=== PATIENT | female | born 1945 | race Caucasian/White ===

== ENCOUNTER 2018-02-10 17:04 | Emergency (ER) | payer MEDICARE, OTHER, MEDICAID ==
[2018-02-10] MEDS ORDERED: Ketorolac 60 MG/2 ML SDV IM ONE (18:19)
--- NOTE | 2018-02-10 18:25 | EDM.PDOC ---
ED HPI GENERAL MEDICAL PROBLEM - General Chief Complaint: Upper Extremity Injury/Pain Stated Complaint: RIGHT ARM PAIN Time Seen by Provider: 02/10/18 18:19 Source of Information: Reports: Patient History Limitations: Reports: No Limitations - History of Present Illness INITIAL COMMENTS - FREE TEXT/NARRATIVE: Patient is a 72-year-old female who presents to the emergency department this evening with a complaint of recent onset right upper extremity pain, and chronic neck and back pain. Back pain and neck pain has been addressed multiple times by primary care physician. Patient states that right upper extremity pain is from the elbow to the wrist. Started 3 days ago. Patient admits to using right upper extremity on the walker handles for support while ambulating. Patient was started on tramadol last week for chronic pain and states it helped subside the pain a little bit. Patient denies shortness of breath, chest pain, trauma, or fever. Onset: Gradual Duration: Day(s): Location: Reports: Neck, Back, Upper Extremity, Right Quality: Reports: Ache Severity: Mild Improves with: Reports: Rest Worsens with: Reports: Movement Associated Symptoms: Reports: No Other Symptoms Treatments [employer]: Reports: Other Medication(s) Right Lower Arm Pain Score (Numeric/FACES): 6 - Related Data Allergies Allergy/AdvReac Type Severity Reaction Status Date / Time cortisone [Cortisone] Allergy Cannot Verified 02/10/18 17:24 Remember Zrwqvuj-Fjy-Pjm Reductase Allergy Cannot Verified 02/10/18 17:24 Inhibitor Remember Sulfa (Sulfonamide Allergy Cannot Verified 02/10/18 17:24 Antibiotics) Remember Home Meds: Home Meds Felodipine [Felodipine ER] 10 mg PO DAILY 05/10/14 [History] Lisinopril 20 mg PO DAILY 05/10/14 [History] Misoprostol 200 mcg PO BID 05/10/14 [History] Sertraline [Zoloft] 150 mg PO DAILY 05/10/14 [History] Alendronate Sodium [Fosamax] 70 mg PO WE 02/10/18 [History] Aspirin 81 mg PO DAILY 02/10/18 [History] Calcium Carbonate/Vitamin D3 [Os-Steven 500+D] 1 tab PO DAILY 02/10/18 [History] Cholecalciferol (Vitamin D3) [Vitamin D3] 5,000 unit PO DAILY 02/10/18 [History] DULoxetine [Cymbalta] 20 mg PO DAILY 02/10/18 [History] Diclofenac Sodium [Voltaren] 75 mg PO BID 02/10/18 [History] Docusate Sodium [Colace] 100 mg PO BID 02/10/18 [History] Multivitamin [Daily Multiple Vitamin] 1 tab PO DAILY 02/10/18 [History] Nystatin [Nystatin Crm] 1 applic TOP BID PRN 02/10/18 [History] traMADol [Ultram] 50 mg PO BID PRN 02/10/18 [History] Social & Family History - Living Situation & Occupation Living situation: Reports: Review of Systems - Review of Systems Review Of Systems: ROS reveals no pertinent complaints other than HPI. Constitutional: Reports: No Symptoms Eyes: Reports: No Symptoms Ears: Reports: No Symptoms Nose: Reports: No Symptoms Mouth/Throat: Reports: No Symptoms Respiratory: Reports: No Symptoms Cardiovascular: Reports: No Symptoms GI/Abdominal: Reports: No Symptoms Genitourinary: Reports: No Symptoms Musculoskeletal: Reports: Neck Pain, Arm Pain (Right arm), Back Pain Skin: Reports: No Symptoms Neurological: Reports: No Symptoms Psychiatric: Reports: No Symptoms ED EXAM, GENERAL - Physical Exam Exam: See Below Exam Limited By: No Limitations General Appearance: Alert, WD/WN, No Apparent Distress Throat/Mouth: Normal Inspection, Normal Oropharynx, No Airway Compromise Head: Atraumatic, Normocephalic Neck: Limited Range of Motion (Secondary to discomfort), Tender Lateral. No: Lymphadenopathy (L), Lymphadenopathy (R), Tender Midline Respiratory/Chest: No Respiratory Distress Back Exam: Decreased Range of Motion (Secondary to discomfort), Paraspinal Tenderness. No: CVA Tenderness (L), CVA Tenderness (R), Vertebral Tenderness Extremities: Normal Range of Motion, Arm Pain (Right forearm from elbow to wrist mildly tender to palpation. No elbow involvement, wrist in vomit, ecchymosis, edema, deformity, or erythema noted.) Neurological: Alert, Oriented, Normal Cognition Psychiatric: Normal Affect, Normal Mood Skin Exam: Warm, Dry, Intact, Normal Color, No Rash Lymphatic: No Adenopathy Course - Vital Signs Last Recorded V/S: Last Vital Signs Temp 98.6 F 02/10/18 17:07 Pulse 95 02/10/18 17:07 Resp 16 02/10/18 17:07 BP 162/78 H 02/10/18 17:07 Pulse Ox 97 02/10/18 17:07 - Orders/Labs/Meds Orders: Active Orders 24 hr Category Date Time Status Forearm 2V Rt [CR] Stat Exams 02/10/18 17:29 Ordered Ketorolac [Toradol] Med 02/10/18 18:19 Once 60 mg IM ONETIME ONE - Radiology Interpretation Free Text/Narrative:: X-ray right forearm is negative for any bony abnormality - Re-Assessments/Exams Free Text/Narrative Re-Assessment/Exam: 02/10/18 18:26 Patient afebrile, nontoxic appearing, vital signs stable. She has multiple chronic pain issues and right upper extremity has been causing more discomfort last few days. Patient was started on tramadol but told to take it only every 12 hours. Patient was given 60 mg IM Toradol in ER. Patient advised to take tramadol every 6-8 hours and to follow-up at [facility] in 1-2 days. Departure - Departure Time of Disposition: 18:28 Disposition: Home, Self-Care 01 Condition: Good Clinical Impression: Cervical radiculopathy due to degenerative joint disease of spine, Chronic back pain Chronic pain Qualifiers: Chronic pain type: chronic pain syndrome Qualified Code(s): G89.4 - Chronic pain syndrome Arthritic-like pain Qualifiers: Joint pain location: unspecified Qualified Code(s): M25.50 - Pain in unspecified joint - Discharge Information Instructions: Radicular Pain, Musculoskeletal Pain, Chronic Pain, Adult, Arthritis, [id number], Cervical Radiculopathy, [id number] Referrals: Susan Bush, TECHNICAL AID [Primary Care Provider] - Additional Instructions: Follow-up at [facility] in 1-2 days. Return to emergency department sooner if symptoms continue or worsen. Take tramadol every 6-8 hours as needed for pain. - My Orders Last 24 Hours: My Active Orders 02/10/18 17:29 Forearm 2V Rt [CR] Stat 02/10/18 18:19 Ketorolac [Toradol] 60 mg IM ONETIME ONE - Assessment/Plan Last 24 Hours: My Active Orders 02/10/18 17:29 Forearm 2V Rt [CR] Stat 02/10/18 18:19 Ketorolac [Toradol] 60 mg IM ONETIME ONE Assessment:: Chronic pain Plan: Follow-up at [facility]
== END 2018-02-10 18:45 | disposition home or self-care (01) ==
LOC: KA.ED 17:04
DX: M47.22 Other spondylosis with radiculopathy, cervical region (principal); M54.9 Dorsalgia, unspecified; G89.4 Chronic pain syndrome; M25.50 Pain in unspecified joint; Z79.82 Long term (current) use of aspirin; Z79.899 Other long term (current) drug therapy; Z88.2 Allergy status to sulfonamides; Z88.8 Allergy status to other drugs, medicaments and biological substances
CPT/HCPCS: 73090; 96372; 99283; J1885

== ENCOUNTER 2021-03-16 11:46 | Emergency (ER) | payer MEDICAID, MEDICARE, OTHER ==
--- NOTE | 2021-03-16 11:53 | EDM.PDOC ---
ED HPI GENERAL MEDICAL PROBLEM - General Chief Complaint: Skin Complaint Stated Complaint: WOUND INFECTION Time Seen by Provider: 03/16/21 11:48 Source of Information: Reports: Patient History Limitations: Reports: No Limitations - History of Present Illness INITIAL COMMENTS - FREE TEXT/NARRATIVE: 75 YO WF PRESENTS TO ER COMPLAINING OF REDNESS AND SWELLING TO THE SKIN ON HER POSTERIOR THIGH JUST BELOW HER BUTTOCKS. PT REPORTS THIS HAS BEEN GOING ON FOR 2 DAYS. PT STATES SHE WAS TREATED FOR A SIMILAR EPISODE 1 MONTH AGO WITH 5 DAYS OF ANTIBIOTICS. PT REPORTS HER SYMPTOMS RESOLVED AFTER THE ANTIBIOTICS BUT RETURNED 2 DAYS AGO. PT DENIES FEVER/CHILLS, NO NAUSEA/VOMITING AND MINIMAL PAIN ASSOCIATED WITH WOUND. Duration: Day(s): (2) Location: Reports: Lower Extremity, Left Quality: Reports: Ache Severity: Mild Improves with: Reports: Rest Worsens with: Reports: None Associated Symptoms: Reports: No Other Symptoms - Related Data Allergies Allergy/AdvReac Type Severity Reaction Status Date / Time cortisone [Cortisone] Allergy Cannot Verified 03/16/21 12:29 Remember Lzenecg-Qnk-Ehi Reductase Allergy Cannot Verified 03/16/21 12:29 Inhibitor Remember Sulfa (Sulfonamide Allergy Cannot Verified 03/16/21 12:29 Antibiotics) Remember Home Meds: Home Meds Felodipine [Felodipine ER] 10 mg PO DAILY 05/10/14 [History] Lisinopril 20 mg PO DAILY 05/10/14 [History] Sertraline [Zoloft] 150 mg PO DAILY 05/10/14 [History] miSOPROStoL [Misoprostol] 200 mcg PO BID 05/10/14 [History] Alendronate Sodium [Fosamax] 70 mg PO WE 02/10/18 [History] Aspirin 81 mg PO DAILY 02/10/18 [History] Calcium Carbonate/Vitamin D3 [Os-Steven 500+D] 1 tab PO DAILY 02/10/18 [History] Cholecalciferol (Vitamin D3) [Vitamin D3] 5,000 unit PO DAILY 02/10/18 [History] DULoxetine [Cymbalta] 20 mg PO DAILY 02/10/18 [History] Diclofenac Sodium [Voltaren] 75 mg PO BID 02/10/18 [History] Docusate Sodium [Colace] 100 mg PO BID 02/10/18 [History] Multivitamin [Daily Multiple Vitamin] 1 tab PO DAILY 02/10/18 [History] Nystatin [Nystatin Crm] 1 applic TOP BID PRN 02/10/18 [History] traMADol [Ultram] 50 mg PO BID PRN 02/10/18 [History] Social & Family History - Living Situation & Occupation Living situation: Reports: ED ROS GENERAL - Review of Systems Review Of Systems: See Below Constitutional: Reports: No Symptoms HEENT: Reports: No Symptoms Respiratory: Reports: No Symptoms Cardiovascular: Reports: No Symptoms Endocrine: Reports: No Symptoms GI/Abdominal: Reports: No Symptoms : Reports: No Symptoms Musculoskeletal: Reports: No Symptoms Skin: Reports: Wound (LEFT POSTERIOR THIGH) Neurological: Reports: No Symptoms Psychiatric: Reports: No Symptoms Hematologic/Lymphatic: Reports: No Symptoms Immunologic: Reports: No Symptoms ED EXAM, SKIN/RASH Exam: See Below Exam Limited By: No Limitations General Appearance: Alert, WD/WN, No Apparent Distress Head: Atraumatic, Normocephalic Neck: Normal Inspection, Supple, Non-Tender, Full Range of Motion Respiratory/Chest: No Respiratory Distress, Lungs Clear, Normal Breath Sounds, No Accessory Muscle Use, Chest Non-Tender Cardiovascular: Normal Peripheral Pulses, Regular Rate, Rhythm, No Edema, No Gallop, No JVD, No Murmur, No Rub GI/Abdominal: Normal Bowel Sounds, Soft, Non-Tender, No Organomegaly, No Distention, No Abnormal Bruit, No Mass Extremities: Normal Inspection, Normal Range of Motion, No Pedal Edema, Normal Capillary Refill Neurological: Alert, Oriented, CN II-XII Intact, Normal Cognition, Normal Gait, Normal Reflexes, No Motor/Sensory Deficits Psychiatric: Normal Affect, Normal Mood Location, Skin: Lower Extremity, Left (1cm circular lesion with serosanginous ) Associated features: Tenderness. No: Warmth, Swelling, Induration Departure - Departure Time of Disposition: 12:37 Disposition: Home, Self-Care 01 Condition: Good Clinical Impression: Cellulitis of left thigh - Discharge Information Instructions: Cellulitis, Adult Forms: ED Department Discharge Additional Instructions: 1. DISCHARGE HOME 2. APPLY BACTROBAN TO AFFECTED AREA 3X/DAY X 7DAYS 3. FOLLOW UP IN CLINIC NEEDED FOR RECHECK 4. RETURN TO ER FOR WORSENING SYMPTOMS - Assessment/Plan Assessment:: 1. EARLY CELLULITIS OF LEFT POSTERIOR THIGH Plan: 1. DISCHARGE HOME 2. APPLY BACTROBAN TO AFFECTED AREA 3X/DAY X 7DAYS 3. FOLLOW UP IN CLINIC NEEDED FOR RECHECK 4. RETURN TO ER FOR WORSENING SYMPTOMS
[2021-03-16] MEDS ORDERED: Mupirocin Oint 22 GM Tube TOP ONE (12:36)
== END 2021-03-16 13:00 | disposition home or self-care (01) ==
LOC: KA.ED 11:46
DX: L03.116 Cellulitis of left lower limb (principal); Z79.82 Long term (current) use of aspirin; Z88.2 Allergy status to sulfonamides; Z88.8 Allergy status to other drugs, medicaments and biological substances
CPT/HCPCS: 99283; 99284

== ENCOUNTER 2021-07-07 04:50 | Observation (INO) | payer MEDICAID, MEDICARE, OTHER ==
--- NOTE | 2021-07-07 04:58 | EDM.PDOC ---
ED HPI GENERAL MEDICAL PROBLEM - General Chief Complaint: General Stated Complaint: falls at home, knee & hip pain Time Seen by Provider: 07/07/21 04:50 Source of Information: Reports: Patient, EMS History Limitations: Reports: No Limitations - History of Present Illness INITIAL COMMENTS - FREE TEXT/NARRATIVE: Germania, 75-year-old female, presents by ambulance this morning after she sustained her second fall of the night at their apartment. First fall was on the evening of the 2nd and was assisted back up by the ambulance staff. Positioning issues as she got caught in the doorway of the bathroom as her wheelchair slid away from her. The second issue for ambulance dispatched to assist and pick her up was she got caught/twisted in her lift chair in a precarious position and was unable to get out of the chair without assistance. Her has had recent surgery and is unable to assist her as he is able to provide his own cares only. She states weakness and dizziness contributed to this, but she now has worsened pain of her left knee as well as right hip pain that she feels she bumped/fell. Ambulance was needed to assist her out of the chair and she was unable to assist of any significant benefit. Secondary of her limited mobility without assistance and her contribution of new pain, or worsened pain, ambulance discussed and she accepted the fact that she would need medical evaluation predominantly for the dizziness if it was contributing to her weakness. She then requested the ambulance to bring her to the hospital to get checked out. Onset: Today, Unknown/Unsure Duration: Hour(s): Location: Reports: Generalized Quality: Reports: Burning, Pressure, Same as Previous Episode, Sharp Severity: Moderate Improves with: Reports: None Worsens with: Reports: Movement Context: Reports: Trauma Associated Symptoms: Reports: Weakness Generalized Pain Score (Numeric/FACES): 5 - Related Data Allergies Allergy/AdvReac Type Severity Reaction Status Date / Time cortisone [Cortisone] Allergy Cannot Verified 07/07/21 05:02 Remember Chfksam-Xuj-Ehz Reductase Allergy Cannot Verified 07/07/21 05:02 Inhibitor Remember Sulfa (Sulfonamide Allergy Cannot Verified 07/07/21 05:02 Antibiotics) Remember Home Meds: Home Meds Felodipine [Felodipine ER] 10 mg PO DAILY 05/10/14 [History] Lisinopril 40 mg PO DAILY 05/10/14 [History] Sertraline [Zoloft] 200 mg PO DAILY 05/10/14 [History] Cholecalciferol (Vitamin D3) [Vitamin D3] 5,000 unit PO DAILY 02/10/18 [History] Acetaminophen [Tylenol Arthritis Pain] 650 mg PO TID PRN 03/16/21 [History] Ascorbic Acid 500 mg PO DAILY 03/16/21 [History] Denosumab [Prolia] 60 mg SUBCUT ASDIRECTED 03/16/21 [History] Furosemide 40 mg PO Q2D 03/16/21 [History] Omeprazole 20 mg PO Q2D 03/16/21 [History] Rosuvastatin [Crestor] 10 mg PO DAILY 03/16/21 [History] hydroCHLOROthiazide [Hydrochlorothiazide] 12.5 mg PO QAM 03/16/21 [History] traZODone 75 mg PO BEDTIME 03/16/21 [History] Clotrimazole [Clotrimazole 1%] 1 gm TOP BID PRN 07/07/21 [History] Magnesium Hydroxide [Milk of Magnesia] 30 ml PO DAILY PRN 07/07/21 [History] Menthol/Methyl Salicylate [Bengay Greaseless Cream] 1 gm TOP Q6H PRN 07/07/21 [History] Menthol/Zinc Oxide [Calmoseptine] 3.5 gm TOP TID PRN 07/07/21 [History] Metoprolol Succinate [Toprol XL] 25 mg PO DAILY 07/07/21 [History] Mirtazapine 7.5 mg PO BEDTIME 07/07/21 [History] Multivitamins/Min/Ca/FA/Iron [Thera-M] 1 each PO DAILY 07/07/21 [History] Potassium Chloride [Klor-Con 10] 20 meq PO DAILY 07/07/21 [History] Sennosides/Docusate Sodium [Senna Plus 8.6-50 mg Tablet] 1 each PO BEDTIME 07/07/21 [History] buPROPion HCL [Bupropion HCl Sr] 150 mg PO DAILY 07/07/21 [History] Past Medical History HEENT History: Reports: Impaired Vision Cardiovascular History: Reports: Heart Murmur, Hypertension Genitourinary History: Reports: None 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: Musculoskeletal History: Reports: Arthritis Neurological History: Reports: None Psychiatric History: Reports: Anxiety, Depression - Infectious Disease History Infectious Disease History: Reports: MRSA - Past Surgical History HEENT Surgical History: Reports: Oral Surgery Cardiovascular Surgical History: Reports: None Female Surgical History: Reports: Breast Biopsy, Hysterectomy Other Female Surgeries/Procedures: removed fatty tumor from right breast Neurological Surgical History: Reports: Lumbar Spine Other Neurological Surgeries/Procedures: rods and screws in lumbar region Musculoskeletal Surgical History: Reports: Knee Replacement Other Musculoskeletal Surgeries/Procedures:: right knee replacement. right shoulder replacement Social & Family History - Family History Family Medical History: No Pertinent Family History - Caffeine Use Caffeine Use: Reports: None - Living Situation & Occupation Living situation: Reports: ED ROS GENERAL - Review of Systems Review Of Systems: Comprehensive ROS is negative, except as noted in HPI. ED EXAM, GENERAL - Physical Exam Exam: See Below Free Text/Narrative:: Alert, cheerful, in mild painful distress to which she initially states is her chronic concerns. I specifically asked Germania what is new as to try come to a focus on why she is presenting via ambulance to the emergency department. At this time she states that her left knee is worse than usual as well as her right hip. She has been dizzy and questions if that is her contributing factor to falls. She has not been drinking as much water as usual. She states she is feeling anxious and may be somewhat depressed telling me that "I had a nervous breakdown, at least that is what I thought it was, 3 weeks ago." HEENT is negative to discharge nor deformity. Pupils are reactive and equal. No icterus no injection. Neck is soft supple I do not appreciate bruit no rigidity. Thorax is somewhat diminished, her effort contributing to that slightly. Cardiac Is very distant regular, I do not appreciate murmur. Abdomen is rotund soft bowel sounds are present I do not appreciate any tenderness no rebound tenderness. There is faint tenderness to the right hip but does not seem to be as severe as her exacerbation of chronic pain to her left knee. Left knee shows no significant deformity in comparison to right knee. There is mild crepitus to motion, of which I feel arthritic/degenerative in nature. +2 edema lower extremities she is able to move her feet and legs upon command with associated knee pain. She is very stubborn stating she will attempt to do things on her own of which she is unable to requiring assist for any type of motion. It is noted she is weightbearing once we can get her to a standing position and she is able to pivot into the wheelchair and attempt to go to the bathroom and she does not want catheter placement. She then refuses pelvic x-ray as she states due to chronic back pain she cannot lay flat. She does agree to the left knee films and the chest x-ray. No palpitations or dizziness is experienced during the time with moving and positioning her. #1 Interpretation EKG Date: 07/07/21 Time: 07:17 Rhythm: NSR Rate (Beats/Min): 90 Williams: LAD-Left Williams Deviation P-Wave: Present QRS: RBBB ST-T: Normal QT: Normal Comparison: No Change (Compare 22 Jun 2018) Course - Vital Signs Last Recorded V/S: Last Vital Signs Temp 96.7 F L 07/07/21 06:33 Pulse 94 07/07/21 08:02 Resp 20 07/07/21 06:33 BP 146/115 H 07/07/21 08:02 Pulse Ox 97 07/07/21 07:16 - Orders/Labs/Meds Orders: Active Orders 24 hr Category Date Time Status Fatima Catheter Insertion [Insert Urinary Catheter] [OM. Care 07/07/21 06:30 Ordered PC] Q24H Peripheral IV Care [RC] . DIRECTED Care 07/07/21 05:00 Active Urinary Catheter Assessment [RC] ASDIRECTED Care 07/07/21 06:26 Active CULTURE URINE [RM] Stat Lab 07/07/21 06:50 Received Sodium Chloride 0.9% [Saline Flush] Med 07/07/21 05:00 Active 10 ml FLUSH Q8HR PRN Peripheral IV Insertion Adult [OM.PC] Routine Oth 07/07/21 05:00 Ordered EKG 12 Lead [EK] Stat Ther 07/07/21 05:02 Ordered Medication Orders Sodium Chloride (Sodium Chloride 0.9% 10 Ml Syringe) 10 ml FLUSH Q8HR PRN PRN Reason: keep vein open Last Admin: 07/07/21 06:40 Dose: 10 ml Documented by: ADRIAN Labs: Laboratory Tests 07/07/21 07/07/21 07/07/21 Range/Units 06:30 06:30 06:50 WBC 9.89 (5.00-10.00) 10^3/uL RBC 4.37 (3.80-5.50) 10^6/uL Hgb 12.5 (12.0-16.0) g/dL Hct 38.8 (37.0-47.0) % MCV 88.8 (82.0-92.0) fL MCH 28.6 (27.0-31.0) pg MCHC 32.2 (32.0-36.0) g/dL RDW 14.7 H (11.5-14.5) % Plt Count 131 L (150-400) 10^3/uL MPV 12.3 H (7.4-10.4) fL Immature Gran % (Auto) 0.3 (0.0-5.0) % Neut % (Auto) 82.2 H (50.0-70.0) % Lymph % (Auto) 9.9 L (20.0-40.0) % [place] % (Auto) 7.0 (2.0-8.0) % Eos % (Auto) 0.4 L (1.0-3.0) % Baso % (Auto) 0.2 (0.0-1.0) % Neut # (Auto) 8.13 H (2.50-7.00) 10^3/uL Lymph # (Auto) 0.98 L (1.00-4.00) 10^3/uL [place] # (Auto) 0.69 (0.10-0.80) 10^3/uL Eos # (Auto) 0.04 L (0.10-0.30) 10^3/uL Baso # (Auto) 0.02 (0.00-0.10) 10^3/uL Immature Gran # (Auto) 0.03 (0.00-0.50) 10^3/uL Sodium 136 (136-145) mmol/L Potassium 4.0 (3.5-5.1) mmol/L Chloride 101 (98-107) mmol/L Carbon Dioxide 23.6 (21.0-32.0) mmol/L Anion Gap 15.4 H (5-15) mmol/L BUN 26 H (7-18) mg/dL Creatinine 0.84 (0.51-1.17) mg/dL Est Cr Clr Drug Dosing TNP Estimated GFR (MDRD) > 60 mL/min Glucose 115 (70-140) mg/dL Calcium 9.4 (8.7-10.3) mg/dL Total Bilirubin 0.4 (0.2-1.0) mg/dL AST 24 (15-37) U/L ALT 23 (14-63) U/L Alkaline Phosphatase 53 (46-116) U/L Troponin I High Sens 8.700 (0-51.000) pg/mL Total Protein 8.3 H (6.4-8.2) g/dL Albumin 3.67 (3.40-5.00) g/dL Specimen Type Urincc Urine Color Yellow (YELLOW) Urine Appearance Cloudy H (CLEAR) Urine pH 8.5 (5.0-9.0) Ur Specific [place] 1.015 (1.005-1.030) Urine Protein 30 H (NEGATIVE) mg/dL Urine Glucose (UA) Negative (NEGATIVE) mg/dL Urine Ketones Trace H (NEGATIVE) mg/dL Urine Occult Blood Moderate H (NEGATIVE) Urine Nitrite Positive H (NEGATIVE) Urine Bilirubin Negative (NEGATIVE) Urine Urobilinogen 0.2 (0.2-1.0) E.U./dL Ur Leukocyte Esterase Small H (NEGATIVE) Urine RBC 5-10 H (0-5) /HPF Urine WBC 5-10 H (0-5) /HPF Ur Epithelial Cells Few /LPF Other Crystals See note /HPF Urine Bacteria Many H (NONE TO FEW) /HPF Urinalysis Comment SARS CoV-2 RNA Rapid SHIRLEY (NEGATIVE) 07/07/21 Range/Units 07:30 WBC (5.00-10.00) 10^3/uL RBC (3.80-5.50) 10^6/uL Hgb (12.0-16.0) g/dL Hct (37.0-47.0) % MCV (82.0-92.0) fL MCH (27.0-31.0) pg MCHC (32.0-36.0) g/dL RDW (11.5-14.5) % Plt Count (150-400) 10^3/uL MPV (7.4-10.4) fL Immature Gran % (Auto) (0.0-5.0) % Neut % (Auto) (50.0-70.0) % Lymph % (Auto) (20.0-40.0) % [place] % (Auto) (2.0-8.0) % Eos % (Auto) (1.0-3.0) % Baso % (Auto) (0.0-1.0) % Neut # (Auto) (2.50-7.00) 10^3/uL Lymph # (Auto) (1.00-4.00) 10^3/uL [place] # (Auto) (0.10-0.80) 10^3/uL Eos # (Auto) (0.10-0.30) 10^3/uL Baso # (Auto) (0.00-0.10) 10^3/uL Immature Gran # (Auto) (0.00-0.50) 10^3/uL Sodium (136-145) mmol/L Potassium (3.5-5.1) mmol/L Chloride (98-107) mmol/L Carbon Dioxide (21.0-32.0) mmol/L Anion Gap (5-15) mmol/L BUN (7-18) mg/dL Creatinine (0.51-1.17) mg/dL Est Cr Clr Drug Dosing Estimated GFR (MDRD) mL/min Glucose (70-140) mg/dL Calcium (8.7-10.3) mg/dL Total Bilirubin (0.2-1.0) mg/dL AST (15-37) U/L ALT (14-63) U/L Alkaline Phosphatase (46-116) U/L Troponin I High Sens (0-51.000) pg/mL Total Protein (6.4-8.2) g/dL Albumin (3.40-5.00) g/dL Specimen Type Urine Color (YELLOW) Urine Appearance (CLEAR) Urine pH (5.0-9.0) Ur Specific [place] (1.005-1.030) Urine Protein (NEGATIVE) mg/dL Urine Glucose (UA) (NEGATIVE) mg/dL Urine Ketones (NEGATIVE) mg/dL Urine Occult Blood (NEGATIVE) Urine Nitrite (NEGATIVE) Urine Bilirubin (NEGATIVE) Urine Urobilinogen (0.2-1.0) E.U./dL Ur Leukocyte Esterase (NEGATIVE) Urine RBC (0-5) /HPF Urine WBC (0-5) /HPF Ur Epithelial Cells /LPF Other Crystals /HPF Urine Bacteria (NONE TO FEW) /HPF Urinalysis Comment SARS CoV-2 RNA Rapid SHIRLEY Negative (NEGATIVE) Meds: Medications Generic Name Dose Route Start Last Admin Trade Name Ying PRN Reason Stop Dose Admin Sodium Chloride 10 ml 07/07/21 05:00 07/07/21 06:40 Sodium Chloride 0.9% 10 Ml Syringe FLUSH 10 ml Q8HR PRN Administration keep vein open Discontinued Medications Generic Name Dose Route Start Last Admin Trade Name Ying PRN Reason Stop Dose Admin Acetaminophen 1,000 mg 07/07/21 07:09 07/07/21 07:22 Acetaminophen 500 Mg Tab PO 07/07/21 07:10 1,000 mg ONETIME ONE Administration Bupropion HCl 150 mg 07/07/21 05:07 07/07/21 05:32 Bupropion 150 Mg Tab.Er PO 07/07/21 05:08 150 mg ONETIME ONE Administration Ceftriaxone Sodium 1 gm 07/07/21 07:45 07/07/21 07:55 Ceftriaxone 1 Gm Vial IVPUSH 07/07/21 07:46 1 gm ONETIME ONE Administration Hydromorphone HCl 1 mg 07/07/21 06:54 Hydromorphone 1 Mg/Ml Syringe IVPUSH 07/07/21 06:55 ONETIME ONE - Re-Assessments/Exams Free Text/Narrative Re-Assessment/Exam: 07/07/21 06:31 Diligent discussion with Germania after several times requiring my assistance for positioning and moving in regards to her status. I expressed my concern that understanding that the wheelchair moved causing her first fall last evening is somewhat explainable but the fact she was unable to get up without assistance makes me concerned for her overall safety. The fact that her second event was falling and getting wedged in her chair to which she did not have the strength to get out on her own requiring ambulance summons again for assistance lift and the fact that she cannot position herself without assistance led to her request for evaluation due to dizziness and her pain being transferred here. I expressed my concern that with her able to care for himself only, and the fact that is requiring at least 1 of us in the emergency department and/or x-ray to assist her for any position changes it may be somewhat difficult to discharge her home unless we can find some metabolic findings in her work-up that would be leading to this dizziness weakness limiting her self-care ability. She previously had been a resident at the [facility] but felt she was good enough to be on her own which may be was true at the time of discharge but I feel at this point now she is candidate for long-term care placement and hopefully would be facilitated at both her and her could be either in assisted living and/or long-term care for the assistance she is needing at this time and potentially will continue as well as with his recent surgery would benefit in his overall status. Departure - Departure Time of Disposition: 08:43 Disposition: Refer to Observation Condition: Fair Clinical Impression: COVID-19 ruled out by laboratory testing, Weakness, Dizziness UTI (urinary tract infection) Qualifiers: Urinary tract infection type: acute cystitis Hematuria presence: with hematuria Qualified Code(s): N30.01 - Acute cystitis with hematuria Fall Qualifiers: Encounter type: initial encounter Qualified Code(s): W19.XXXA - Unspecified fall, initial encounter Left knee pain Qualifiers: Chronicity: chronic Qualified Code(s): M25.562 - Pain in left knee Degenerative joint disease of knee, left Qualifiers: Osteoarthritis type: unspecified Qualified Code(s): M17.12 - Unilateral primary osteoarthritis, left knee Hematuria Qualifiers: Hematuria type: asymptomatic microscopic Qualified Code(s): R31.21 - Asymptomatic microscopic hematuria - Discharge Information *PRESCRIPTION DRUG MONITORING PROGRAM REVIEWED*: Not Applicable *COPY OF PRESCRIPTION DRUG MONITORING REPORT IN PATIENT JANNETH: Not Applicable Referrals: Joi Bush NP [Primary Care Provider] - Eve Quintero MD [Physician] - Forms: ED Department Discharge Additional Instructions: Will be deferred to observation status, [facility] admitting Dr. Tomy Sutton. Sepsis Event Note (ED) - Focused Exam Vital Signs: Vital Signs Temp Pulse Resp BP Pulse Ox 07/07/21 08:02 94 146/115 H 07/07/21 07:46 93 178/88 H 07/07/21 07:31 93 94/73 07/07/21 07:16 94 164/93 H 97 07/07/21 07:01 93 182/131 H 07/07/21 06:46 94 193/86 H 07/07/21 06:33 96.7 F L 86 20 191/79 H 99 ED Communication - ED Communication Date/Time Date: 07/07/21 Time Called: 08:18 - Discussed Case With (1) Discussed Case With (1): Admitting Provider (Observation status with intent of placement to LTC) Person/s Notified (1): Eve Quintero - Problem List & Annotations (1) Left knee pain SNOMED Code(s): 2826168385 Code(s): M25.562 - PAIN IN LEFT KNEE Status: Chronic Priority: High Qualifiers: Chronicity: chronic Qualified Code(s): M25.562 - Pain in left knee; G89.29 - Other chronic pain (2) Degenerative joint disease of knee, left SNOMED Code(s): 233542126328206 Code(s): M17.12 - UNILATERAL PRIMARY OSTEOARTHRITIS, LEFT KNEE Status: Chronic Priority: Medium Qualifiers: Osteoarthritis type: unspecified Qualified Code(s): M17.12 - Unilateral primary osteoarthritis, left knee (3) Fall SNOMED Code(s): 4996690, 183537763 Code(s): W19.XXXA - UNSPECIFIED FALL, INITIAL ENCOUNTER Status: Acute Priority: High Qualifiers: Encounter type: initial encounter Qualified Code(s): W19.XXXA - Unspecified fall, initial encounter (4) Dizziness SNOMED Code(s): 632472871, 469565991 Code(s): R42 - DIZZINESS AND GIDDINESS Status: Acute Priority: High (5) Weakness SNOMED Code(s): 72624470 Code(s): R53.1 - WEAKNESS Status: Acute Priority: High (6) Chronic back pain SNOMED Code(s): 421145522 Code(s): M54.9 - DORSALGIA, UNSPECIFIED; G89.29 - OTHER CHRONIC PAIN Status: Chronic Priority: Medium Annotation/Comment:: back pain with sciatica (7) Chronic pain SNOMED Code(s): 22221267 Code(s): G89.29 - OTHER CHRONIC PAIN Status: Chronic Priority: Medium Qualifiers: Chronic pain type: chronic pain syndrome Qualified Code(s): G89.4 - Chronic pain syndrome (8) Arthritic-like pain SNOMED Code(s): 40378303 Code(s): M25.50 - PAIN IN UNSPECIFIED JOINT Status: Acute Priority: High Qualifiers: Joint pain location: knee Laterality: left Qualified Code(s): M25.562 - Pain in left knee (9) UTI (urinary tract infection) SNOMED Code(s): 31338510 Code(s): N39.0 - URINARY TRACT INFECTION, SITE NOT SPECIFIED Status: Acute Priority: High Qualifiers: Urinary tract infection type: acute cystitis Hematuria presence: with hematuria Qualified Code(s): N30.01 - Acute cystitis with hematuria (10) Hematuria SNOMED Code(s): 25839763 Code(s): R31.9 - HEMATURIA, UNSPECIFIED Status: Acute Priority: High Qualifiers: Hematuria type: asymptomatic microscopic Qualified Code(s): R31.21 - Asymptomatic microscopic hematuria (11) COVID-19 ruled out by laboratory testing SNOMED Code(s): 603249244608739247, 479520380524180462 Code(s): Z20.822 - CONTACT WITH AND (SUSPECTED) EXPOSURE TO COVID-19 Status: Acute - Problem List Review Problem List Initiated/Reviewed/Updated: Yes - My Orders Last 24 Hours: My Active Orders 07/07/21 05:00 Peripheral IV Care [RC] . DIRECTED Sodium Chloride 0.9% [Saline Flush] 10 ml FLUSH Q8HR PRN Peripheral IV Insertion Adult [OM.PC] Routine 07/07/21 05:02 EKG 12 Lead [EK] Stat 07/07/21 06:26 Urinary Catheter Assessment [RC] ASDIRECTED 07/07/21 06:30 Fatima Catheter Insertion [Insert Urinary Catheter] [OM.PC] Q24H 07/07/21 06:50 CULTURE URINE [RM] Stat - Assessment/Plan Last 24 Hours: My Active Orders 07/07/21 05:00 Peripheral IV Care [RC] . DIRECTED Sodium Chloride 0.9% [Saline Flush] 10 ml FLUSH Q8HR PRN Peripheral IV Insertion Adult [OM.PC] Routine 07/07/21 05:02 EKG 12 Lead [EK] Stat 07/07/21 06:26 Urinary Catheter Assessment [RC] ASDIRECTED 07/07/21 06:30 Fatima Catheter Insertion [Insert Urinary Catheter] [OM.PC] Q24H 07/07/21 06:50 CULTURE URINE [RM] Stat Plan: Will be deferred to observation status, [facility] admitting Dr. Tomy Sutton.
[2021-07-07] MEDS ORDERED: Sodium Chloride 0.9% 10 ML Syringe FLUSH PRN (05:00)
[2021-07-07] MEDS ORDERED: buPROPion 150 MG Tab.ER PO ONE (05:07)
[2021-07-07] MEDS ORDERED: HYDROmorphone 1 MG/ML Syringe IVPUSH ONE (06:54)
[2021-07-07 06:59] LABS: ANION GAP 15.4 mmol/L (5-15); CHLORIDE,CL 101 mmol/L (98-107); SODIUM,NA 136 mmol/L (136-145)
[2021-07-07] MEDS ORDERED: Acetaminophen 500 MG Tab PO ONE (07:09)
[2021-07-07] MEDS ORDERED: cefTRIAXone 1 GM Vial IVPUSH ONE (07:45)
[2021-07-07] MEDS ORDERED: Magnesium Hydroxide 400 MG/5 ML Susp 30 ML Cup PO PRN (13:27)
[2021-07-07] MEDS ORDERED: Ondansetron 4 MG/2 ML SDV IVPUSH PRN (13:42)
[2021-07-07] MEDS ORDERED: FELODIPINE 10 MG PO SCH (13:45)
--- NOTE | 2021-07-07 13:52 | PCM.HP.2 ---
H&P History of Present Illness - General Date of Service: 07/07/21 Admit Problem/Dx: Admission Diagnosis/Problem Admission Diagnosis/Problem Weakness Source of Information: Patient, Old Records, RN - History of Present Illness Initial Comments - Free Text/Narative: Patient reports feeling weak today and for the last month. Today she is reporting constipation and nausea. Patient reports "nervous breakdown" three weeks ago. She reports increased anxiety as well since then. She also report a "stomach bug" about one week ago and she had diarrhea at that time. She has been falling at home and unable to care for herself. She has also been working with home health OT that has discharged her from their care due to lack of progress. Patient does admit to feeling like she is unable to care for herself appropriately at home. Generalized Pain Score (Numeric/FACES): 5 - Related Data Allergies/Adverse Reactions: Allergies Allergy/AdvReac Type Severity Reaction Status Date / Time cortisone [Cortisone] Allergy Cannot Verified 07/07/21 05:02 Remember Uwwymez-Irt-Uir Reductase Allergy Cannot Verified 07/07/21 05:02 Inhibitor Remember Sulfa (Sulfonamide Allergy Cannot Verified 07/07/21 05:02 Antibiotics) Remember Home Medications: Home Meds Felodipine [Felodipine ER] 10 mg PO DAILY 05/10/14 [History] Lisinopril 40 mg PO DAILY 05/10/14 [History] Sertraline [Zoloft] 200 mg PO DAILY 05/10/14 [History] Cholecalciferol (Vitamin D3) [Vitamin D3] 5,000 unit PO DAILY 02/10/18 [History] Acetaminophen [Tylenol Arthritis Pain] 650 mg PO TID PRN 03/16/21 [History] Ascorbic Acid 500 mg PO DAILY 03/16/21 [History] Denosumab [Prolia] 60 mg SUBCUT ASDIRECTED 03/16/21 [History] Furosemide 40 mg PO Q2D 03/16/21 [History] Omeprazole 20 mg PO Q2D 03/16/21 [History] Rosuvastatin [Crestor] 10 mg PO DAILY 03/16/21 [History] hydroCHLOROthiazide [Hydrochlorothiazide] 12.5 mg PO QAM 03/16/21 [History] traZODone 75 mg PO BEDTIME 03/16/21 [History] Clotrimazole [Clotrimazole 1%] 1 gm TOP BID PRN 07/07/21 [History] Magnesium Hydroxide [Milk of Magnesia] 30 ml PO DAILY PRN 07/07/21 [History] Menthol/Methyl Salicylate [Bengay Greaseless Cream] 1 gm TOP Q6H PRN 07/07/21 [History] Menthol/Zinc Oxide [Calmoseptine] 3.5 gm TOP TID PRN 07/07/21 [History] Metoprolol Succinate [Toprol XL] 25 mg PO DAILY 07/07/21 [History] Mirtazapine 7.5 mg PO BEDTIME 07/07/21 [History] Multivitamins/Min/Ca/FA/Iron [Thera-M] 1 each PO DAILY 07/07/21 [History] Potassium Chloride [Klor-Con 10] 20 meq PO DAILY 07/07/21 [History] Sennosides/Docusate Sodium [Senna Plus 8.6-50 mg Tablet] 1 each PO BEDTIME 07/07/21 [History] buPROPion HCL [Bupropion HCl Sr] 150 mg PO DAILY 07/07/21 [History] Past Medical History HEENT History: Reports: Impaired Vision Other HEENT History: pt wears glasses. 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 right shoulder replacement. back surgery Social & Family History - Family History Family Medical History: No Pertinent Family History Cardiac: Reports: CAD Psychiatric: Reports: Depression - Tobacco Use Tobacco Use Status *Q: Never Tobacco User - Caffeine Use Caffeine Use: Reports: Soda - Recreational Drug Use Recreational Drug Use: No - Living Situation & Occupation Living situation: Reports: H&P Review of Systems - Review of Systems: Review Of Systems: Comprehensive ROS is negative, except as noted in HPI. Exam - Exam Exam: See Below - Vital Signs Vital Signs: Last Vital Signs Temp 97.7 F 07/07/21 09:29 Pulse 91 07/07/21 09:29 Resp 16 07/07/21 09:29 BP 162/71 H 07/07/21 09:29 Pulse Ox 100 07/07/21 09:29 Weight: 182 lb - Exam General: Alert, Oriented, Cooperative HEENT: Conjunctiva Clear Neck: Supple, Trachea Midline Lungs: Clear to Auscultation, Normal Respiratory Effort Cardiovascular: Regular Rate, Regular Rhythm GI/Abdominal Exam: Normal Bowel Sounds, Soft, Non-Tender Extremities: Normal Inspection, Non-Tender (No tenderness upon palpation of the left knee. Crepitus in the left knee noted. ), No Pedal Edema, Normal Capillary Refill Peripheral Pulses: 2+: Radial (R) Skin: Warm, Dry Neuro Extensive - Mental Status: Alert Psychiatric: Alert, Normal Affect, Normal Mood - Patient Data Lab Results Last 24 hrs: Laboratory Results - last 24 hr 07/07/21 07/07/21 07/07/21 Range/Units 06:30 06:30 06:50 WBC 9.89 (5.00-10.00) 10^3/uL RBC 4.37 (3.80-5.50) 10^6/uL Hgb 12.5 (12.0-16.0) g/dL Hct 38.8 (37.0-47.0) % MCV 88.8 (82.0-92.0) fL MCH 28.6 (27.0-31.0) pg MCHC 32.2 (32.0-36.0) g/dL RDW 14.7 H (11.5-14.5) % Plt Count 131 L (150-400) 10^3/uL MPV 12.3 H (7.4-10.4) fL Immature Gran % (Auto) 0.3 (0.0-5.0) % Neut % (Auto) 82.2 H (50.0-70.0) % Lymph % (Auto) 9.9 L (20.0-40.0) % [place] % (Auto) 7.0 (2.0-8.0) % Eos % (Auto) 0.4 L (1.0-3.0) % Baso % (Auto) 0.2 (0.0-1.0) % Neut # (Auto) 8.13 H (2.50-7.00) 10^3/uL Lymph # (Auto) 0.98 L (1.00-4.00) 10^3/uL [place] # (Auto) 0.69 (0.10-0.80) 10^3/uL Eos # (Auto) 0.04 L (0.10-0.30) 10^3/uL Baso # (Auto) 0.02 (0.00-0.10) 10^3/uL Immature Gran # (Auto) 0.03 (0.00-0.50) 10^3/uL Sodium 136 (136-145) mmol/L Potassium 4.0 (3.5-5.1) mmol/L Chloride 101 (98-107) mmol/L Carbon Dioxide 23.6 (21.0-32.0) mmol/L Anion Gap 15.4 H (5-15) mmol/L BUN 26 H (7-18) mg/dL Creatinine 0.84 (0.51-1.17) mg/dL Est Cr Clr Drug Dosing TNP Estimated GFR (MDRD) > 60 mL/min Glucose 115 (70-140) mg/dL Calcium 9.4 (8.7-10.3) mg/dL Total Bilirubin 0.4 (0.2-1.0) mg/dL AST 24 (15-37) U/L ALT 23 (14-63) U/L Alkaline Phosphatase 53 (46-116) U/L Troponin I High Sens 8.700 (0-51.000) pg/mL Total Protein 8.3 H (6.4-8.2) g/dL Albumin 3.67 (3.40-5.00) g/dL Specimen Type Urincc Urine Color Yellow (YELLOW) Urine Appearance Cloudy H (CLEAR) Urine pH 8.5 (5.0-9.0) Ur Specific [place] 1.015 (1.005-1.030) Urine Protein 30 H (NEGATIVE) mg/dL Urine Glucose (UA) Negative (NEGATIVE) mg/dL Urine Ketones Trace H (NEGATIVE) mg/dL Urine Occult Blood Moderate H (NEGATIVE) Urine Nitrite Positive H (NEGATIVE) Urine Bilirubin Negative (NEGATIVE) Urine Urobilinogen 0.2 (0.2-1.0) E.U./dL Ur Leukocyte Esterase Small H (NEGATIVE) Urine RBC 5-10 H (0-5) /HPF Urine WBC 5-10 H (0-5) /HPF Ur Epithelial Cells Few /LPF Other Crystals See note /HPF Urine Bacteria Many H (NONE TO FEW) /HPF Urinalysis Comment SARS CoV-2 RNA Rapid SHIRLEY (NEGATIVE) 07/07/21 Range/Units 07:30 WBC (5.00-10.00) 10^3/uL RBC (3.80-5.50) 10^6/uL Hgb (12.0-16.0) g/dL Hct (37.0-47.0) % MCV (82.0-92.0) fL MCH (27.0-31.0) pg MCHC (32.0-36.0) g/dL RDW (11.5-14.5) % Plt Count (150-400) 10^3/uL MPV (7.4-10.4) fL Immature Gran % (Auto) (0.0-5.0) % Neut % (Auto) (50.0-70.0) % Lymph % (Auto) (20.0-40.0) % Wood[place] % (Auto) (2.0-8.0) % Eos % (Auto) (1.0-3.0) % Baso % (Auto) (0.0-1.0) % Neut # (Auto) (2.50-7.00) 10^3/uL Lymph # (Auto) (1.00-4.00) 10^3/uL [place] # (Auto) (0.10-0.80) 10^3/uL Eos # (Auto) (0.10-0.30) 10^3/uL Baso # (Auto) (0.00-0.10) 10^3/uL Immature Gran # (Auto) (0.00-0.50) 10^3/uL Sodium (136-145) mmol/L Potassium (3.5-5.1) mmol/L Chloride (98-107) mmol/L Carbon Dioxide (21.0-32.0) mmol/L Anion Gap (5-15) mmol/L BUN (7-18) mg/dL Creatinine (0.51-1.17) mg/dL Est Cr Clr Drug Dosing Estimated GFR (MDRD) mL/min Glucose (70-140) mg/dL Calcium (8.7-10.3) mg/dL Total Bilirubin (0.2-1.0) mg/dL AST (15-37) U/L ALT (14-63) U/L Alkaline Phosphatase (46-116) U/L Troponin I High Sens (0-51.000) pg/mL Total Protein (6.4-8.2) g/dL Albumin (3.40-5.00) g/dL Specimen Type Urine Color (YELLOW) Urine Appearance (CLEAR) Urine pH (5.0-9.0) Ur Specific [place]ock (1.005-1.030) Urine Protein (NEGATIVE) mg/dL Urine Glucose (UA) (NEGATIVE) mg/dL Urine Ketones (NEGATIVE) mg/dL Urine Occult Blood (NEGATIVE) Urine Nitrite (NEGATIVE) Urine Bilirubin (NEGATIVE) Urine Urobilinogen (0.2-1.0) E.U./dL Ur Leukocyte Esterase (NEGATIVE) Urine RBC (0-5) /HPF Urine WBC (0-5) /HPF Ur Epithelial Cells /LPF Other Crystals /HPF Urine Bacteria (NONE TO FEW) /HPF Urinalysis Comment SARS CoV-2 RNA Rapid SHIRLEY Negative (NEGATIVE) Result Diagrams: 07/07/21 06:30 07/07/21 06:30 Sepsis Event Note - Evaluation Sepsis Screening Result: No Definite Risk - Focused Exam Vital Signs: Vital Signs Temp Pulse Resp BP BP Pulse Ox 07/07/21 09:29 97.7 F 91 16 162/71 H 100 07/07/21 08:31 91 127/109 H 98 07/07/21 08:26 165/60 H 07/07/21 08:15 96 18 214/190 H 98 07/07/21 08:02 94 146/115 H 07/07/21 07:46 93 178/88 H 07/07/21 07:31 93 94/73 07/07/21 07:16 94 164/93 H 97 07/07/21 07:01 93 182/131 H 07/07/21 06:46 94 193/86 H 07/07/21 06:33 96.7 F L 86 20 191/79 H 99 Problem List Initiated/Reviewed/Updated: Yes Orders Last 24hrs: Active Orders 24 hr Category Date Time Status Patient Status [ADT] Routine ADT 07/07/21 08:29 Active Intake and Output [RC] QSHIFT Care 07/07/21 13:10 Ordered Oxygen Therapy [RC] PRN Care 07/07/21 13:09 Ordered Peripheral IV Care [RC] . DIRECTED Care 07/07/21 05:00 Active Pulse Oximetry [RC] PRN Care 07/07/21 13:10 Ordered Up to Chair [RC] ASDIRECTED Care 07/07/21 13:09 Ordered VTE/DVT Education [RC] PER UNIT ROUTINE Care 07/07/21 13:09 Ordered Vital Signs [RC] Q4H Care 07/07/21 13:09 Ordered Consult to Case Management/[place] [CONS] Cons 07/07/21 13:23 Ordered Routine Heart Healthy Diet [DIET] Diet 07/07/21 Lunch Active Regular Diet [DIET] Diet 07/07/21 Dinner Ordered CULTURE URINE [RM] Stat Lab 07/07/21 06:50 Received Acetaminophen [Tylenol Arthritis Pain] Med 07/07/21 13:27 Ordered 650 mg PO TID PRN DULoxetine [Cymbalta] Med 07/07/21 13:45 Ordered 30 mg PO DAILY Docusate Sodium/Sennosides [Senna Plus] Med 07/07/21 21:00 Ordered 1 each PO BEDTIME Felodipine [Felodipine ER] Med 07/07/21 13:45 Ordered 10 mg PO DAILY Magnesium Hydroxide [Milk of Magnesia] Med 07/07/21 13:27 Ordered 30 ml PO DAILY PRN Metoprolol Succinate [Toprol XL] Med 07/07/21 13:45 Ordered 25 mg PO DAILY Omeprazole [Omeprazole] Med 07/07/21 13:30 Ordered 20 mg PO Q2D Ondansetron [Zofran] Med 07/07/21 13:42 Ordered 4 mg IVPUSH Q6H PRN Potassium Chloride [Klor-Con 10] Med 07/08/21 09:00 Ordered 20 meq PO DAILY Rosuvastatin [Crestor] Med 07/07/21 13:45 Ordered 10 mg PO DAILY Sertraline [Zoloft] Med 07/08/21 09:00 Ordered 200 mg PO DAILY Sodium Chloride 0.9% [Saline Flush] Med 07/07/21 05:00 Active 10 ml FLUSH Q8HR PRN hydroCHLOROthiazide Med 07/07/21 13:45 Ordered 12.5 mg PO QAM lisinopriL [Prinivil] Med 07/07/21 13:45 Ordered 40 mg PO DAILY traZODone Med 07/07/21 21:00 Ordered 75 mg PO BEDTIME Peripheral IV Insertion Adult [OM.PC] Routine Oth 07/07/21 05:00 Ordered Code Status [Resuscitation Status] Stat Resus Stat 07/07/21 08:36 Ordered EKG 12 Lead [EK] Stat Ther 07/07/21 05:02 Ordered Medication Orders Acetaminophen (Acetaminophen 650 Mg Tab.Er) 650 mg PO TID PRN PRN Reason: Pain Duloxetine HCl (Duloxetine 30 Mg Cap) 30 mg PO DAILY [facility] Hydrochlorothiazide (Hydrochlorothiazide 12.5 Mg Cap) 12.5 mg PO QAM [facility] Lisinopril (Lisinopril 20 Mg Tab) 40 mg PO DAILY [facility] Magnesium Hydroxide (Magnesium Hydroxide 400 Mg/5 Ml Susp 30 Ml Cup) 30 ml PO DAILY PRN PRN Reason: Constipation Metoprolol Succinate (Metoprolol Succinate 25 Mg Tab.Er) 25 mg PO DAILY [facility] Non-Formulary Medication (Felodipine [Felodipine Er]) 10 mg PO DAILY [facility] Non-Formulary Medication (Omeprazole [Omeprazole]) 20 mg PO Q2D [facility] Non-Formulary Medication (Sertraline [Zoloft]) 200 mg PO DAILY [facility] Ondansetron HCl (Ondansetron 4 Mg/2 Ml Sdv) 4 mg IVPUSH Q6H PRN PRN Reason: Nausea/Vomiting Potassium Chloride (Potassium Chloride 10 Meq Tab.Er) 20 meq PO DAILY [facility] Rosuvastatin Calcium (Rosuvastatin 10 Mg Tab) 10 mg PO DAILY [facility] Senna/Docusate Sodium (Docusate Sodium/Sennosides 50-8.6 Mg Tab) tab PO BEDTIME [facility] Sodium Chloride (Sodium Chloride 0.9% 10 Ml Syringe) 10 ml FLUSH Q8HR PRN PRN Reason: keep vein open Last Admin: 07/07/21 06:40 Dose: 10 ml Documented by: ADRIAN Trazodone HCl (Trazodone 50 Mg Tab) 75 mg PO BEDTIME [facility] Assessment/Plan Comment:: HPI summary: Patient is a 75 year old female with history of HTN, anxiety, depression, severe osteoarthritis. She presented to the ER due to falling at home twice last night and requiring ambulance assistance. Patient reports feeling weak today and for the last month. She has also been feeling dizzy. Patient reports "nervous breakdown" three weeks ago. She reports increased anxiety as well since then. She also report a "stomach bug" about one week ago and she had diarrhea at that time. She stopped taking one of her blood pressure pills because of the diarrhea. She has been falling at home. She has also been working with home health OT that has discharged her from their care due to lack of progress. Patient does admit to feeling like she is unable to care for herself appropriately at home. Patient had preivous been at the [facility] from April 2019-April 2020. Today she is reporting constipation and nausea. ED course: Vital signs normal. EKG NSR with RBB. X-ray of left knee with extreme degenerative cahnges and depressed lateral tibial plateau fracture (age undetermined). CXR with no acute findings. Platlets of 131. Rest of CBC unremarkable. CMP unremarkable. UA with 5-10 RBC and WBC many bacteria and small leukocyte esterase. Patient given 1 g of ceftriaxone for possible UTI. Hospitalization problems and plan: #Frequent falls #Deconditioning #Self care deficit #Severe osteoarthritis #GI illness, likely viral Patient admits to being unable to care for self at home. Failed outpatient home therapy. -Consult social work for assistance in placement to SNF #Bacturia No symptoms of dysuria, frequency or incontinence above baseline. Likely asymptomatic. -UC pending. -Covered with ceftriaxone for 24 hours. Will decide on continuing antibiotics tomorrow. #Thrombocytopenia -recheck CBC in AM Chronic, stable conditions: #Hypertension: Has not been taking home regimen. BP has been elevated. Continue on lisinopril 40 mg daily, HCTZ 12.5 mg daily, metoprolol 25 mg daily, felodipi ne 10 mg daily #Hyperlipidemia: Continue on rosuvastatin 10 mg daily #Pedal edema: Continue lasix 40 mg every other day #GERD: Cotinue with PPI. #Hypokalemia: Continue with potassium chloride 20 mEq daily #Anxiety and depression: Continue with sertraline 200 mg daily, trazodone 75 mg at HS. Restart duloxetine at 30 mg daily. Was previously on 60 mg daily before it was discontinued. Remeron has recently been discontinued. Hospitalization details: # FEN: No IV fluids. Electrolytes normal. Regular diet. # PPX: Will start if patient stays beyond 24 hours. # Code status: DRR/DNI # Emergency contact: Clemente () [phone] (cell phone) # Disposition: Admit to observation status for above probelme. Consulting social work. Plan for for placement to SNF. Patient reports feeling weak today and for the last month. Today she is reporting constipation and nausea. Patient reports "nervous breakdown" three weeks ago. She reports increased anxiety as well since then. She also report a "stomach bug" about one week ago and she had diarrhea at that time. She has been falling at home and unable to care for herself. She has also been working with home health OT that has discharged her from their care due to lack of progress. Patient does admit to feeling like she is unable to care for herself appropriately at home.
[2021-07-07] MEDS: DULoxetine 30 MG Cap PO SCH (14:18)
[2021-07-07] MEDS: Hydrochlorothiazide 12.5 MG Cap PO SCH (14:18)
[2021-07-07] MEDS: Lisinopril 20 MG Tab PO SCH (14:20)
[2021-07-07] MEDS: Metoprolol Succinate 25 MG Tab.ER PO SCH (15:34)
[2021-07-07] MEDS: hydrOXYzine HCl 25 MG Tab PO PRN ×2 (15:35→21:35)
[2021-07-07] MEDS: Sertraline 50 MG Tab PO SCH (15:35)
[2021-07-07] MEDS: Acetaminophen 650 MG Tab.ER PO PRN ×2 (15:35→23:37)
[2021-07-07] MEDS ORDERED: Pantoprazole 40 MG Tab.CR PO SCH (16:00)
[2021-07-07] MEDS ORDERED: Diclofenac Sodium 1% Gel 100 GM Tube TOP PRN (16:40)
[2021-07-07] MEDS ORDERED: traZODone 50 MG Tab PO SCH (21:00)
[2021-07-07] MEDS ORDERED: Rosuvastatin 10 MG Tab PO SCH (21:00)
[2021-07-08] MEDS ORDERED: LORazepam 0.5 MG Tab PO ONE (00:10)
[2021-07-08] MEDS: Acetaminophen 650 MG Tab.ER PO PRN (08:38)
[2021-07-08] MEDS ORDERED: Potassium Chloride 10 MEQ Tab.ER PO SCH (09:00)
[2021-07-08 09:05] LABS: ANION GAP 13.6 mmol/L (5-15)
[2021-07-08] MEDS: Hydrochlorothiazide 12.5 MG Cap PO SCH (09:19)
[2021-07-08] MEDS: Metoprolol Succinate 25 MG Tab.ER PO SCH (09:19)
[2021-07-08] MEDS: DULoxetine 30 MG Cap PO SCH (09:19)
[2021-07-08] MEDS: hydrOXYzine HCl 25 MG Tab PO PRN (09:19)
[2021-07-08] MEDS: Sertraline 50 MG Tab PO SCH (09:19)
[2021-07-08] MEDS: Lisinopril 20 MG Tab PO SCH (09:20)
--- NOTE | 2021-07-08 13:47 | PCM.DCSUM1 ---
Discharge Summary - Hospital Course Free Text/Narrative:: Date of admission: 07/07/21 Date of discharge: 07/08/21 Admission diagnoses: self care deficit, frequent falls, bacturia, deconditioning, severe osteoarthritis, thrombocytopenia Discharge diagnoses: self care deficit, frequent falls, bacturia, deconditioning, severe osteoarthritis Consultations: Social work for placement into SNF Procedures: None Hospital course: HPI summary: Patient is a 75 year old female with history of HTN, anxiety, depression, severe osteoarthritis. She presented to the ER due to falling at home twice last night and requiring ambulance assistance. Patient reports feeling weak today and for the last month. She has also been feeling dizzy. Patient reports "nervous breakdown" three weeks ago. She reports increased anxiety as well since then. She also report a "stomach bug" about one week ago and she had diarrhea at that time. She stopped taking one of her blood pressure pills because of the diarrhea. She has been falling at home. She has also been working with home health OT that has discharged her from their care due to lack of progress. Panfilo mann does admit to feeling like she is unable to care for herself appropriately at home. Patient had preivous been at the [facility] from April 2019- April 2020. Today she is reporting constipation and nausea. ED course: Vital signs normal. EKG NSR with RBB. X-ray of left knee with extreme degenerative cahnges and depressed lateral tibial plateau fracture (age undetermined). CXR with no acute findings. Platlets of 131. Rest of CBC unremarkable. CMP unremarkable. UA with 5-10 RBC and WBC many bacteria and small leukocyte esterase. Patient given 1 g of ceftriaxone for possible UTI. Hospital course: 07/08/21: Patient's nausea improved after having a bowel movement yesterday. Plt returned to normal limits. Antibiotic stopped after a one time dose of ceftria xone in the ER due to patient having asymptomatic bacturia that does not require treatment. Hospitalization problems and plan: #Frequent falls #Deconditioning #Self care deficit #Severe osteoarthritis #GI illness, likely viral Patient admits to being unable to care for self at home. Failed outpatient home therapy. -Consult social work for assistance in placement to SNF #Bacturia No symptoms of dysuria, frequency or incontinence above baseline. Likely asymptomatic. -UC pending. -Covered with ceftriaxone for 24 hours. -No further antibiotics needed. #Thrombocytopenia -Resolved. Chronic, stable conditions: #Hypertension: Has not been taking home regimen. BP has been elevated. Continue on lisinopril 40 mg daily, HCTZ 12.5 mg daily, metoprolol 25 mg daily, felodipine 10 mg daily #Hyperlipidemia: Continue on rosuvastatin 10 mg daily #Pedal edema: Continue lasix 40 mg every other day #GERD: Cotinue with PPI. #Hypokalemia: Continue with potassium chloride 20 mEq daily #Anxiety and depression: Continue with sertraline 200 mg daily, trazodone 75 mg at HS. Restart duloxetine at 30 mg daily. Was previously on 60 mg daily before it was discontinued. Remeron has recently been discontinued. Discharge and follow-up recommendations: - Discharge to SNF - New medications at discharge: cymbalta 30 mg daily, diclofenac PRN, hydroxyzine PRN. - Follow-up with next [facility] rounds - Discharge Data Discharge Date: 07/08/21 Discharge Disposition: DC/Tfer to [facility] Condition: Good - Referral to Home Health Primary Care Physician: Joi Bush NP - Patient Summary/Data Consults: Consultations 07/07/21 13:23 Consult to Case Management/Business Intelligence Engineer [CONS] Routine - Patient Instructions Diet: Regular Diet as Tolerated Activity: As Tolerated - Discharge Plan *PRESCRIPTION DRUG MONITORING PROGRAM REVIEWED*: Not Applicable *COPY OF PRESCRIPTION DRUG MONITORING REPORT IN PATIENT JANNETH: Not Applicable Prescriptions/Med Rec: DULoxetine [Cymbalta] 30 mg PO DAILY #30 cap hydrOXYzine HCL [hydrOXYzine] 25 mg PO Q6H PRN #30 tablet PRN Reason: Anxiety Diclofenac Sodium [Voltaren 1% Gel] 1 gm TOP QID PRN #1 tube PRN Reason: Pain Home Medications: Home Meds Felodipine [Felodipine ER] 10 mg PO DAILY 05/10/14 [History] Lisinopril 40 mg PO DAILY 05/10/14 [History] Sertraline [Zoloft] 200 mg PO DAILY 05/10/14 [History] Cholecalciferol (Vitamin D3) [Vitamin D3] 5,000 unit PO DAILY 02/10/18 [History] Acetaminophen [Tylenol Arthritis Pain] 650 mg PO TID PRN 03/16/21 [History] Ascorbic Acid 500 mg PO DAILY 03/16/21 [History] Denosumab [Prolia] 60 mg SUBCUT ASDIRECTED 03/16/21 [History] Furosemide 40 mg PO Q2D 03/16/21 [History] Omeprazole 20 mg PO Q2D 03/16/21 [History] Rosuvastatin [Crestor] 10 mg PO DAILY 03/16/21 [History] hydroCHLOROthiazide [Hydrochlorothiazide] 12.5 mg PO QAM 03/16/21 [History] traZODone 75 mg PO BEDTIME 03/16/21 [History] Clotrimazole [Clotrimazole 1%] 1 gm TOP BID PRN 07/07/21 [History] Magnesium Hydroxide [Milk of Magnesia] 30 ml PO DAILY PRN 07/07/21 [History] Menthol/Methyl Salicylate [Bengay Greaseless Cream] 1 gm TOP Q6H PRN 07/07/21 [History] Menthol/Zinc Oxide [Calmoseptine] 3.5 gm TOP TID PRN 07/07/21 [History] Metoprolol Succinate [Toprol XL] 25 mg PO DAILY 07/07/21 [History] Multivitamins/Min/Ca/FA/Iron [Thera-M] 1 each PO DAILY 07/07/21 [History] Potassium Chloride [Klor-Con 10] 20 meq PO DAILY 07/07/21 [History] Sennosides/Docusate Sodium [Senna Plus 8.6-50 mg Tablet] 1 each PO BEDTIME 07/07/21 [History] DULoxetine [Cymbalta] 30 mg PO DAILY #30 cap 07/08/21 [Rx] Diclofenac Sodium [Voltaren 1% Gel] 1 gm TOP QID PRN #1 tube 07/08/21 [Rx] hydrOXYzine HCL [hydrOXYzine] 25 mg PO Q6H PRN #30 tablet 07/08/21 [Rx] Forms: ED Department Discharge Referrals: [facility] [Outside] - Discharge Summary/Plan Comment DC Time >30 min.: Yes Total # of Minutes for Discharge Time: 40 minutes Discharge Summary/Plan Comment: Date of admission: Date of discharge: Admission diagnoses: Discharge diagnoses: Consultations: Procedures: Hospital course: Discharge and follow-up recommendations: - Discharge to - New medications at discharge: - Follow-up - General Info Date of Service: 07/08/21 Subjective Update: Patient feeling better this morning. She had a BM yesterday and that improved her nausea. She reports back pain. She does have chronic back pain. Denies pain in her left knee. Patient still feels unable to care for self at home. - Patient Data Vitals - Most Recent: Last Vital Signs Temp 98 F 07/08/21 11:00 Pulse 60 07/08/21 11:00 Resp 60 H 07/08/21 11:00 BP 146/65 H 07/08/21 11:00 Pulse Ox 97 07/08/21 11:00 Weight - Most Recent: 182 lb I&O - Last 24 hours: Intake & Output 07/07/21 07/08/21 07/08/21 22:59 06:59 14:59 Intake Total 440 150 Balance 440 150 Lab Results - Last 24 hrs: Laboratory Results - last 24 hr 07/08/21 07/08/21 Range/Units 08:31 08:31 WBC 9.05 (5.00-10.00) 10^3/uL RBC 4.63 (3.80-5.50) 10^6/uL Hgb 13.0 (12.0-16.0) g/dL Hct 40.9 (37.0-47.0) % MCV 88.3 (82.0-92.0) fL MCH 28.1 (27.0-31.0) pg MCHC 31.8 L (32.0-36.0) g/dL RDW 14.9 H (11.5-14.5) % Plt Count 172 (150-400) 10^3/uL MPV 11.2 H (7.4-10.4) fL Immature Gran % (Auto) 0.4 (0.0-5.0) % Neut % (Auto) 71.2 H (50.0-70.0) % Lymph % (Auto) 18.5 L (20.0-40.0) % [place] % (Auto) 8.2 H (2.0-8.0) % Eos % (Auto) 1.5 (1.0-3.0) % Baso % (Auto) 0.2 (0.0-1.0) % Neut # (Auto) 6.44 (2.50-7.00) 10^3/uL Lymph # (Auto) 1.67 (1.00-4.00) 10^3/uL [place] # (Auto) 0.74 (0.10-0.80) 10^3/uL Eos # (Auto) 0.14 (0.10-0.30) 10^3/uL Baso # (Auto) 0.02 (0.00-0.10) 10^3/uL Immature Gran # (Auto) 0.04 (0.00-0.50) 10^3/uL Sodium 137 (136-145) mmol/L Potassium 3.5 (3.5-5.1) mmol/L Chloride 102 (98-107) mmol/L Carbon Dioxide 24.9 (21.0-32.0) mmol/L Anion Gap 13.6 (5-15) mmol/L BUN 23 H (7-18) mg/dL Creatinine 1.00 (0.51-1.17) mg/dL Est Cr Clr Drug Dosing 34.91 mL/min Estimated GFR (MDRD) 54 mL/min Glucose 105 (70-140) mg/dL Calcium 9.3 (8.7-10.3) mg/dL Total Bilirubin 0.3 (0.2-1.0) mg/dL AST 28 (15-37) U/L ALT 21 (14-63) U/L Alkaline Phosphatase 58 (46-116) U/L Total Protein 8.3 H (6.4-8.2) g/dL Albumin 3.58 (3.40-5.00) g/dL NOA Results - Last 24 hrs: Microbiology 07/07/21 06:50 Urine Culture - Final Urine, Catheterized Med Orders - Current: Current Medications Acetaminophen (Acetaminophen 650 Mg Tab.Er) 650 mg PO TID PRN PRN Reason: Pain Last Admin: 07/08/21 08:38 Dose: 650 mg Documented by: Diclofenac Sodium (Diclofenac Sodium 1% Gel 100 Gm Tube) 1 gm TOP QID PRN PRN Reason: Pain Last Admin: 07/07/21 17:03 Dose: 1 applic Documented by: Duloxetine HCl (Duloxetine 30 Mg Cap) 30 mg PO DAILY [facility] Last Admin: 07/08/21 09:19 Dose: 30 mg Documented by: Hydrochlorothiazide (Hydrochlorothiazide 12.5 Mg Cap) 12.5 mg PO QAM [facility] Last Admin: 07/08/21 09:19 Dose: 12.5 mg Documented by: Hydroxyzine HCl (Hydroxyzine Hcl 25 Mg Tab) 25 mg PO Q6H PRN PRN Reason: Anxiety Last Admin: 07/08/21 09:19 Dose: 25 mg Documented by: Lisinopril (Lisinopril 20 Mg Tab) 40 mg PO DAILY [facility] Last Admin: 07/08/21 09:20 Dose: 40 mg Documented by: Magnesium Hydroxide (Magnesium Hydroxide 400 Mg/5 Ml Susp 30 Ml Cup) 30 ml PO DAILY PRN PRN Reason: Constipation Metoprolol Succinate (Metoprolol Succinate 25 Mg Tab.Er) 25 mg PO DAILY [facility] Last Admin: 07/08/21 09:19 Dose: 25 mg Documented by: Non-Formulary Medication (Felodipine [Felodipine Er]) 10 mg PO DAILY [facility] Ondansetron HCl (Ondansetron 4 Mg/2 Ml Sdv) 4 mg IVPUSH Q6H PRN PRN Reason: Nausea/Vomiting Last Admin: 07/07/21 14:11 Dose: 4 mg Documented by: Pantoprazole Sodium (Pantoprazole 40 Mg Tab.Cr) 40 mg PO Q2D [facility] Last Admin: 07/07/21 16:20 Dose: 40 mg Documented by: Potassium Chloride (Potassium Chloride 10 Meq Tab.Er) 20 meq PO DAILY [facility] Last Admin: 07/08/21 09:19 Dose: 20 meq Documented by: Rosuvastatin Calcium (Rosuvastatin 10 Mg Tab) 10 mg PO BEDTIME [facility] Last Admin: 07/07/21 20:38 Dose: 10 mg Documented by: Senna/Docusate Sodium (Docusate Sodium/Sennosides 50-8.6 Mg Tab) 1 tab PO BEDTIME [facility] Last Admin: 07/07/21 20:38 Dose: 1 tab Documented by: Sertraline HCl (Sertraline 50 Mg Tab) 200 mg PO DAILY [facility] Last Admin: 07/08/21 09:19 Dose: 200 mg Documented by: Sodium Chloride (Sodium Chloride 0.9% 10 Ml Syringe) 10 ml FLUSH Q8HR PRN PRN Reason: keep vein open Last Admin: 07/07/21 06:40 Dose: 10 ml Documented by: Trazodone HCl (Trazodone 50 Mg Tab) 75 mg PO BEDTIME [facility] Last Admin: 07/07/21 20:37 Dose: 75 mg Documented by: Discontinued Medications Acetaminophen (Acetaminophen 500 Mg Tab) 1,000 mg PO ONETIME ONE Stop: 07/07/21 07:10 Last Admin: 07/07/21 07:22 Dose: 1,000 mg Documented by: Bupropion HCl (Bupropion 150 Mg Tab.Er) 150 mg PO ONETIME ONE Stop: 07/07/21 05:08 Last Admin: 07/07/21 05:32 Dose: 150 mg Documented by: Ceftriaxone Sodium (Ceftriaxone 1 Gm Vial) 1 gm IVPUSH ONETIME ONE Stop: 07/07/21 07:46 Last Admin: 07/07/21 07:55 Dose: 1 gm Documented by: Hydromorphone HCl (Hydromorphone 1 Mg/Ml Syringe) 1 mg IVPUSH ONETIME ONE Stop: 07/07/21 06:55 Lorazepam (Lorazepam 0.5 Mg Tab) 0.5 mg PO ONETIME ONE Stop: 07/08/21 00:11 Last Admin: 07/08/21 00:17 Dose: 0.5 mg Documented by: - Exam General: Reports: Alert, Oriented, Cooperative Neck: Reports: Supple Lungs: Reports: Clear to Auscultation, Normal Respiratory Effort Cardiovascular: Reports: Regular Rate, Regular Rhythm, No Murmurs GI/Abdominal Exam: Normal Bowel Sounds, Soft, Non-Tender Extremities: No Pedal Edema, Normal Capillary Refill Skin: Reports: Warm, Dry Psy/Mental Status: Reports: Alert, Normal Affect, Normal Mood
== END 2021-07-08 14:05 ==
LOC: KA.ED 04:50 → KA.MS 08:29
PROVIDERS: ADMIT Family Medicine; ATTEND Family Medicine
DX: R29.6 Repeated falls (principal); R53.1 Weakness; D69.6 Thrombocytopenia, unspecified; I10 Essential (primary) hypertension; F41.9 Anxiety disorder, unspecified; F32.9 Major depressive disorder, single episode, unspecified; M19.90 Unspecified osteoarthritis, unspecified site; E78.5 Hyperlipidemia, unspecified; K21.9 Gastro-esophageal reflux disease without esophagitis; E87.6 Hypokalemia; Z79.899 Other long term (current) drug therapy; Z20.822 Contact with and (suspected) exposure to COVID-19; W19.XXXA Unspecified fall, initial encounter
CPT/HCPCS: 36415; 51702; 80053; 81001; 84484; 85025; 87086; 87088; 87186; 93005; 96374; 96375; 99284; 99285-25; A9270-GY; G0378; J0696; J2405; U0002

== ENCOUNTER 2021-10-22 01:03 | Observation (INO) | payer MEDICARE, MEDICAID ==
[2021-10-22] MEDS ORDERED: Sodium Chloride 0.9% 10 ML Syringe FLUSH PRN ×2 (01:48→06:00)
[2021-10-22 02:33] LABS: ANION GAP 16.2 mmol/L (5-15); CHLORIDE,CL 103 mmol/L (98-107); SODIUM,NA 140 mmol/L (136-145)
[2021-10-22] MEDS ORDERED: Acetaminophen 325 MG Tab PO PRN (04:32)
[2021-10-22] MEDS ORDERED: Pantoprazole 40 MG Tab.CR PO ONE (07:30)
[2021-10-22] MEDS ORDERED: Calcium Carbonate 500 MG Tab.Chew PO PRN (09:56)
[2021-10-22] MEDS ORDERED: Acetaminophen 650 MG Tab.ER PO PRN (09:56)
[2021-10-22] MEDS ORDERED: Nystatin Topical Powder 15 GM Bottle TOP PRN (09:56)
[2021-10-22] MEDS ORDERED: Magnesium Hydroxide 400 MG/5 ML Susp 30 ML Cup PO PRN (09:56)
[2021-10-22] MEDS ORDERED: Clotrimazole 1% Crm 30 GM Tube TOP PRN (09:56)
[2021-10-22] MEDS ORDERED: Diclofenac Sodium 1% Gel 100 GM Tube TOP PRN (09:56)
[2021-10-22] MEDS ORDERED: FELODIPINE 10 MG PO SCH (10:00)
[2021-10-22] MEDS ORDERED: Menthol/Zinc Oxide Ointment 113 GM Tube TOP PRN (10:30)
[2021-10-22] MEDS ORDERED: Bismuth Subsalicylate 262 MG Tab.Chew PO PRN (11:00)
[2021-10-22] MEDS ORDERED: Potassium Chloride 20 MEQ Tab.ER PO SCH (11:00)
[2021-10-22] MEDS ORDERED: Metoprolol Succinate 25 MG Tab.ER PO SCH (11:00)
[2021-10-22] MEDS ORDERED: Hydrochlorothiazide 12.5 MG Cap PO SCH (11:00)
[2021-10-22] MEDS ORDERED: Pantoprazole 40 MG Tab.CR PO SCH (11:00)
[2021-10-22] MEDS ORDERED: Lisinopril 20 MG Tab PO SCH (11:00)
[2021-10-22] MEDS ORDERED: QUEtiapine 25 MG Tab PO SCH (11:00)
[2021-10-22] MEDS ORDERED: Furosemide 40 MG Tab PO SCH (11:00)
[2021-10-22] MEDS ORDERED: Trolamine Salicylate/Aloe Vera 10% Crm 85 GM Tube TOP PRN (11:00)
[2021-10-22] MEDS ORDERED: Sertraline 50 MG Tab PO SCH (11:00)
[2021-10-22] MEDS ORDERED: traZODone 50 MG Tab PO SCH (20:00)
[2021-10-22] MEDS ORDERED: Rosuvastatin 10 MG Tab PO SCH (21:00)
[2021-10-22] MEDS ORDERED: Mirtazapine 15 MG Tab PO SCH (21:00)
== END 2021-10-22 11:50 ==
LOC: KA.ED 01:03 → KA.MS 02:59 → UNDOADMOB 03:10
PROVIDERS: ADMIT Physician Assistant Medical; ATTEND Student in an Organized Health Care Education/Training Program
DX: R53.1 Weakness (principal); G89.29 Other chronic pain; R82.71 Bacteriuria; M81.0 Age-related osteoporosis without current pathological fracture; M17.0 Bilateral primary osteoarthritis of knee; M79.7 Fibromyalgia; R60.9 Edema, unspecified; E66.01 Morbid (severe) obesity due to excess calories; M48.00 Spinal stenosis, site unspecified; M54.16 Radiculopathy, lumbar region; K59.04 Chronic idiopathic constipation; N39.46 Mixed incontinence; F51.04 Psychophysiologic insomnia; E78.2 Mixed hyperlipidemia; I10 Essential (primary) hypertension; K21.9 Gastro-esophageal reflux disease without esophagitis; F41.9 Anxiety disorder, unspecified; F32.A Depression, unspecified; Z20.822 Contact with and (suspected) exposure to COVID-19; Z88.8 Allergy status to other drugs, medicaments and biological substances; Z88.2 Allergy status to sulfonamides; Z79.899 Other long term (current) drug therapy; Z98.890 Other specified postprocedural states
CPT/HCPCS: 36415; 80053; 81001; 85025; 87086; 87186; 93005; A9270-GY; G0378; U0002

== ENCOUNTER 2022-03-31 23:39 | Inpatient (IN) | payer MEDICARE, MEDICAID ==
[2022-03-31] MEDS ORDERED: Sodium Chloride 0.9% 10 ML Syringe FLUSH PRN (23:55)
[2022-04-01] MEDS ORDERED: Acetaminophen 500 MG Tab PO ONE (00:09)
[2022-04-01 00:57] LABS: ANION GAP 12.8 mmol/L (5-15)
[2022-04-01] MEDS ORDERED: cefTRIAXone 1 GM Vial IVPUSH ONE (01:04)
[2022-04-01] MEDS ORDERED: Diclofenac Sodium 1% Gel 100 GM Tube TOP ONE (01:05)
[2022-04-01] MEDS ORDERED: Sodium Chloride 0.9% 10 ML Syringe FLUSH PRN (01:13)
[2022-04-01] MEDS ORDERED: LORazepam 2 MG/ML SDV IVPUSH ONE (01:18)
[2022-04-01] MEDS ORDERED: Acetaminophen 325 MG Tab PO PRN (08:33)
[2022-04-01] MEDS ORDERED: METHYL SALICYLATE TOP PRN (09:49)
[2022-04-01] MEDS ORDERED: [UNRECOGNIZED DRUG - REMARK] TOP PRN (09:49)
[2022-04-01] MEDS ORDERED: Calcium Carbonate 500 MG Tab.Chew PO PRN (09:49)
[2022-04-01] MEDS ORDERED: MENTHOL TOP PRN (09:49)
[2022-04-01] MEDS ORDERED: Magnesium Hydroxide 400 MG/5 ML Susp 30 ML Cup PO PRN (09:49)
[2022-04-01] MEDS: Furosemide 40 MG Tab PO SCH (10:31)
[2022-04-01] MEDS: Allopurinol 100 MG Tab PO SCH (10:31)
[2022-04-01] MEDS: Multivitamins with Minerals/Iron/Folic Acid/Lycopene Tab PO SCH (10:31)
[2022-04-01] MEDS: Potassium Chloride 10 MEQ Tab.ER PO SCH (10:31)
[2022-04-01] MEDS: Cholecalciferol (Vitamin D3) 25 MCG Tab PO SCH (10:36)
[2022-04-01] MEDS: Metoprolol Succinate 25 MG Tab.ER PO SCH (10:36)
[2022-04-01] MEDS: Sertraline 50 MG Tab PO SCH (10:37)
[2022-04-01] MEDS: Lisinopril 20 MG Tab PO SCH (10:37)
[2022-04-01] MEDS: QUEtiapine 25 MG Tab PO SCH ×2 (10:37→20:35)
[2022-04-01] MEDS: FELODIPINE 10 MG PO SCH (11:43)
[2022-04-01] MEDS: Nystatin Topical Powder 15 GM Bottle TOP PRN ×2 (11:44→20:49)
[2022-04-01] MEDS: Diclofenac Sodium 1% Gel 100 GM Tube TOP PRN ×2 (11:44→20:49)
[2022-04-01] MEDS: Enoxaparin 40 MG/0.4 ML Syringe SUBCUT SCH (11:50)
[2022-04-01] MEDS: Acetaminophen 650 MG Tab.ER PO SCH ×2 (13:24→20:34)
[2022-04-01] MEDS: Rosuvastatin 10 MG Tab PO SCH (20:34)
[2022-04-01] MEDS: Mirtazapine 15 MG Tab PO SCH (20:34)
[2022-04-01] MEDS: traZODone 50 MG Tab PO SCH (20:34)
[2022-04-02] MEDS: Acetaminophen 650 MG Tab.ER PO PRN (03:08)
[2022-04-02] MEDS: Pantoprazole 20 MG Tab, Delayed Release PO SCH ×2 (05:48→06:34)
[2022-04-02] MEDS: Nystatin Topical Powder 15 GM Bottle TOP PRN ×2 (08:51→20:13)
[2022-04-02] MEDS: FELODIPINE 10 MG PO SCH (08:51)
[2022-04-02] MEDS: Acetaminophen 650 MG Tab.ER PO SCH ×3 (08:52→20:11)
[2022-04-02] MEDS: Metoprolol Succinate 25 MG Tab.ER PO SCH (08:52)
[2022-04-02] MEDS: Sertraline 50 MG Tab PO SCH (08:52)
[2022-04-02] MEDS: Potassium Chloride 10 MEQ Tab.ER PO SCH (08:52)
[2022-04-02] MEDS: QUEtiapine 25 MG Tab PO SCH ×2 (08:52→20:11)
[2022-04-02] MEDS: Multivitamins with Minerals/Iron/Folic Acid/Lycopene Tab PO SCH (08:52)
[2022-04-02] MEDS: Allopurinol 100 MG Tab PO SCH (08:52)
[2022-04-02] MEDS: Cholecalciferol (Vitamin D3) 25 MCG Tab PO SCH (08:53)
[2022-04-02] MEDS: Lisinopril 20 MG Tab PO SCH (08:53)
[2022-04-02] MEDS: Enoxaparin 40 MG/0.4 ML Syringe SUBCUT SCH (11:07)
[2022-04-02] MEDS: Diclofenac Sodium 1% Gel 100 GM Tube TOP PRN ×2 (13:58→20:12)
[2022-04-02] MEDS: Mirtazapine 15 MG Tab PO SCH (20:11)
[2022-04-02] MEDS: traZODone 50 MG Tab PO SCH (20:11)
[2022-04-02] MEDS: Rosuvastatin 10 MG Tab PO SCH (20:11)
[2022-04-03] MEDS: Acetaminophen 650 MG Tab.ER PO PRN (03:44)
[2022-04-03] MEDS: Diclofenac Sodium 1% Gel 100 GM Tube TOP PRN ×2 (03:45→20:00)
[2022-04-03] MEDS: Pantoprazole 20 MG Tab, Delayed Release PO SCH ×2 (05:58→06:35)
[2022-04-03] MEDS: Nystatin Topical Powder 15 GM Bottle TOP PRN (09:18)
[2022-04-03] MEDS: Potassium Chloride 10 MEQ Tab.ER PO SCH (09:19)
[2022-04-03] MEDS: Lisinopril 20 MG Tab PO SCH (09:20)
[2022-04-03] MEDS: Cholecalciferol (Vitamin D3) 25 MCG Tab PO SCH (09:20)
[2022-04-03] MEDS: Sertraline 50 MG Tab PO SCH (09:20)
[2022-04-03] MEDS: Furosemide 40 MG Tab PO SCH (09:20)
[2022-04-03] MEDS: QUEtiapine 25 MG Tab PO SCH ×2 (09:21→19:59)
[2022-04-03] MEDS: Metoprolol Succinate 25 MG Tab.ER PO SCH (09:21)
[2022-04-03] MEDS: FELODIPINE 10 MG PO SCH (09:21)
[2022-04-03] MEDS: Multivitamins with Minerals/Iron/Folic Acid/Lycopene Tab PO SCH (09:21)
[2022-04-03] MEDS: Acetaminophen 650 MG Tab.ER PO SCH ×3 (09:21→19:59)
[2022-04-03] MEDS: Allopurinol 100 MG Tab PO SCH (09:21)
[2022-04-03] MEDS ORDERED: Polyethylene Glycol 3350 Powder 17 GM Packet PO PRN (11:20)
[2022-04-03] MEDS: Enoxaparin 40 MG/0.4 ML Syringe SUBCUT SCH (11:31)
[2022-04-03 12:31] LABS: ANION GAP 15.2 mmol/L (5-15)
[2022-04-03 12:42] LABS: CORONAVIRUS COVID-19 NAA NEGATIVE (NEGATIVE)
[2022-04-03] MEDS: Rosuvastatin 10 MG Tab PO SCH (19:59)
[2022-04-03] MEDS: Mirtazapine 15 MG Tab PO SCH (19:59)
[2022-04-03] MEDS: traZODone 50 MG Tab PO SCH (20:00)
[2022-04-03] MEDS ORDERED: ALPRAZolam 0.25 MG Tab PO ONE (23:42)
[2022-04-04] MEDS: Acetaminophen 650 MG Tab.ER PO PRN (01:47)
[2022-04-04] MEDS: Pantoprazole 20 MG Tab, Delayed Release PO SCH ×2 (08:00→08:55)
[2022-04-04 08:13] LABS: ANION GAP 12.5 mmol/L (5-15)
[2022-04-04] MEDS: FELODIPINE 10 MG PO SCH (08:54)
[2022-04-04] MEDS: Sertraline 50 MG Tab PO SCH (08:54)
[2022-04-04] MEDS: Lisinopril 20 MG Tab PO SCH (08:55)
[2022-04-04 09:00] VITALS: BP 160/67
[2022-04-04] MEDS: QUEtiapine 25 MG Tab PO SCH (09:20)
[2022-04-04] MEDS: Acetaminophen 650 MG Tab.ER PO SCH (09:34)
[2022-04-04] MEDS: Metoprolol Succinate 25 MG Tab.ER PO SCH (09:35)
[2022-04-04] MEDS: Cholecalciferol (Vitamin D3) 25 MCG Tab PO SCH (09:35)
[2022-04-04] MEDS: Allopurinol 100 MG Tab PO SCH (09:35)
[2022-04-04] MEDS: Potassium Chloride 10 MEQ Tab.ER PO SCH (09:36)
[2022-04-04 09:37] VITALS: PULSE 78
[2022-04-04] MEDS: Multivitamins with Minerals/Iron/Folic Acid/Lycopene Tab PO SCH (09:37)
== END 2022-04-04 10:15 | DRG 881 ==
LOC: KA.ED 23:39 → KA.MS 04-01 01:12 → UNDOADMIN 04-01 01:20 → OBSVTOIN 04-01 01:20 → KA.MS 04-01 01:21 → UNDOADMIN 04-01 01:21 → UNDODISIN 04-04 10:15
PROVIDERS: ADMIT Family Medicine; ATTEND Family Medicine
DX: N39.0 Urinary tract infection, site not specified (principal); F32.A Depression, unspecified; H54.7 Unspecified visual loss; Z74.1 Need for assistance with personal care; K59.09 Other constipation; M19.90 Unspecified osteoarthritis, unspecified site; Z66 Do not resuscitate; R53.1 Weakness; M54.9 Dorsalgia, unspecified; G89.29 Other chronic pain; Z88.2 Allergy status to sulfonamides; Z88.8 Allergy status to other drugs, medicaments and biological substances; Z79.899 Other long term (current) drug therapy; E66.9 Obesity, unspecified; Z96.651 Presence of right artificial knee joint; Z96.611 Presence of right artificial shoulder joint; E78.5 Hyperlipidemia, unspecified; E87.6 Hypokalemia; M1A.9XX0 Chronic gout, unspecified, without tophus (tophi); R53.81 Other malaise; Z68.37 Body mass index [BMI] 37.0-37.9, adult; E78.00 Pure hypercholesterolemia, unspecified; I10 Essential (primary) hypertension; K21.9 Gastro-esophageal reflux disease without esophagitis; Z90.710 Acquired absence of both cervix and uterus; R32 Unspecified urinary incontinence; M79.7 Fibromyalgia; M81.0 Age-related osteoporosis without current pathological fracture; F41.9 Anxiety disorder, unspecified; Z20.822 Contact with and (suspected) exposure to COVID-19
CPT/HCPCS: 0240U; 36415; 71045; 80053; 81001; 85025; 87086; 87088; 87186; 96374; 97161-GP; 97535-GO; 99284; 99285-25; A9270-GY; J0696; J1650; J2060; J3490; U0002

== ENCOUNTER 2023-08-22 22:12 | Emergency (ER) | payer MEDICARE, MEDICAID ==
[2023-08-22] MEDS ORDERED: Sodium Chloride 0.9% 10 ML Syringe FLUSH PRN (22:13)
[2023-08-22 22:31] LABS: BASOPHILS ABSOLUTE AUTO 0.02 10^3/uL (0.00-0.10); BASOPHILS PERCENT AUTO 0.2 % (0.0-1.0); EOSINOPHILS ABSOLUTE AUTO 0.18 10^3/uL (0.10-0.30); EOSINOPHILS PERCENT AUTO 1.8 % (1.0-3.0); LYMPHOCYTES ABSOLUTE AUTO 1.57 10^3/uL (1.00-4.00); LYMPHOCYTES PERCENT AUTO 15.8 % (20.0-40.0); MEAN CORPUSCULAR HEMOGLOBIN 30.2 pg (27.0-31.0); MEAN CORPUSCULAR HGB CONC 31.6 g/dL (32.0-36.0); MEAN CORPUSCULAR VOLUME 95.7 fL (82.0-92.0); MEAN PLATELET VOLUME 11.1 fL (7.4-10.4); MONOCYTES ABSOLUTE AUTO 0.49 10^3/uL (0.10-0.80); MONOCYTES PERCENT AUTO 4.9 % (2.0-8.0); NEUTROPHILS ABSOLUTE AUTO 7.57 10^3/uL (2.50-7.00); NEUTROPHILS PERCENT AUTO 76.3 % (50.0-70.0); PLATELET COUNT,PLT 200 10^3/uL (150-400); RED BLOOD CELL COUNT 3.97 10^6/uL (3.80-5.50); RED CELL DISTRIBUTION WIDTH 14.2 % (11.5-14.5); WHITE BLOOD CELL COUNT,WBC 9.93 10^3/uL (5.00-10.00)
[2023-08-22] MEDS ORDERED: Ondansetron 4 MG/2 ML SDV IVPUSH ONE (22:34)
[2023-08-22 22:49] LABS: ALBUMIN 3.29 g/dL (3.40-5.00); ANION GAP 13.2 mmol/L (5-15); BILIRUBIN TOTAL 0.3 mg/dL (0.2-1.0); CALCIUM 8.9 mg/dL (8.7-10.3); CARBON DIOXIDE,CO2 27.7 mmol/L (21.0-32.0); CREATININE 1.16 mg/dL (0.51-1.17); EST CRCL DRUG DOSING (CG) 28.71 mL/min; POTASSIUM,K 4.9 mmol/L (3.5-5.1); PROTEIN TOTAL,TP 7.5 g/dL (6.4-8.2)
[2023-08-22] MEDS ORDERED: Magnesium Sulfate/Water 2 GM in Premix Bag 1 BAG IV ONE (23:32)
[2023-08-23] MEDS ORDERED: Promethazine 25 MG/ML SDV IM PRN (00:05)
[2023-08-23] MEDS ORDERED: Promethazine 25 MG/ML SDV ONE (00:10)
== END 2023-08-23 00:30 ==
LOC: KA.ED 22:12
DX: R00.1 Bradycardia, unspecified (principal); R11.0 Nausea; R53.1 Weakness; E83.42 Hypomagnesemia; I10 Essential (primary) hypertension; K21.9 Gastro-esophageal reflux disease without esophagitis; E78.00 Pure hypercholesterolemia, unspecified; E66.9 Obesity, unspecified; E87.6 Hypokalemia; Z88.2 Allergy status to sulfonamides; Z88.8 Allergy status to other drugs, medicaments and biological substances; Z79.899 Other long term (current) drug therapy; Z90.710 Acquired absence of both cervix and uterus; Z68.41 Body mass index [BMI] 40.0-44.9, adult
CPT/HCPCS: 71045; 80053; 83735; 83880; 84484; 85025; 85379; 93005; 93010; 96365; 96372; 96375; 99284; 99285-25; J2405; J2550; J3475

== ENCOUNTER 2024-03-08 08:53 | Emergency (ER) | payer MEDICARE, MEDICAID ==
[2024-03-08 09:34] LABS: BASOPHILS ABSOLUTE AUTO 0.04 10^3/uL (0.00-0.10); BASOPHILS PERCENT AUTO 0.6 % (0.0-1.0); EOSINOPHILS ABSOLUTE AUTO 0.11 10^3/uL (0.10-0.30); EOSINOPHILS PERCENT AUTO 1.7 % (1.0-3.0); HEMATOCRIT 23.4 % (37.0-47.0); IMMATURE GRAN ABSOLUTE AUTO 0.03 10^3/uL (0.00-0.50); IMMATURE GRAN PERCENT AUTO 0.5 % (0.0-5.0); LYMPHOCYTES ABSOLUTE AUTO 0.78 10^3/uL (1.00-4.00); LYMPHOCYTES PERCENT AUTO 11.9 % (20.0-40.0); MEAN CORPUSCULAR HGB CONC 28.2 g/dL (32.0-36.0); MEAN CORPUSCULAR VOLUME 95.9 fL (82.0-92.0); MEAN PLATELET VOLUME 12.1 fL (7.4-10.4); MONOCYTES ABSOLUTE AUTO 0.47 10^3/uL (0.10-0.80); MONOCYTES PERCENT AUTO 7.2 % (2.0-8.0); NEUTROPHILS ABSOLUTE AUTO 5.12 10^3/uL (2.50-7.00); NEUTROPHILS PERCENT AUTO 78.1 % (50.0-70.0); PLATELET COUNT,PLT 143 10^3/uL (150-400); RED BLOOD CELL COUNT 2.44 10^6/uL (3.80-5.50); RED CELL DISTRIBUTION WIDTH 14.7 % (11.5-14.5); WHITE BLOOD CELL COUNT,WBC 6.55 10^3/uL (5.00-10.00)
[2024-03-08 09:50] LABS: HEMOGLOBIN 6.6 g/dL (12.0-16.0)
[2024-03-08 09:54] LABS: ALBUMIN 2.8 g/dL (3.40-5.00); ANION GAP 12.4 mmol/L (5-15); BILIRUBIN TOTAL 0.4 mg/dL (0.2-1.0); CALCIUM 8.7 mg/dL (8.7-10.3); CARBON DIOXIDE,CO2 29.8 mmol/L (21.0-32.0); CREATININE 1.59 mg/dL (0.51-1.17); EST CRCL DRUG DOSING (CG) 20.94 mL/min; POTASSIUM,K 4.2 mmol/L (3.5-5.1); PROTEIN TOTAL,TP 7.1 g/dL (6.4-8.2)
[2024-03-08] MEDS ORDERED: Sodium Chloride 0.9% 10 ML Syringe FLUSH PRN (10:14)
== END 2024-03-08 16:50 ==
LOC: KA.ED 08:53
DX: D64.9 Anemia, unspecified (principal); R79.89 Other specified abnormal findings of blood chemistry; N17.9 Acute kidney failure, unspecified; N18.30 Chronic kidney disease, stage 3 unspecified; R19.5 Other fecal abnormalities; I10 Essential (primary) hypertension; K21.9 Gastro-esophageal reflux disease without esophagitis; E78.00 Pure hypercholesterolemia, unspecified; Z88.8 Allergy status to other drugs, medicaments and biological substances; Z88.6 Allergy status to analgesic agent; Z88.2 Allergy status to sulfonamides; Z79.899 Other long term (current) drug therapy; Z90.710 Acquired absence of both cervix and uterus
CPT/HCPCS: 36415; 71045; 80053; 82270; 83880; 84484; 85025; 99285

== ENCOUNTER 2025-01-13 14:36 | Emergency (ER) | payer MEDICARE, MEDICAID ==
[2025-01-13] MEDS: Sodium Chloride 0.9% 1,000 ML IV ONE (15:02)
[2025-01-13 15:12] LABS: BASOPHILS ABSOLUTE AUTO 0.02 10^3/uL (0.00-0.10); BASOPHILS PERCENT AUTO 0.5 % (0.0-1.0); EOSINOPHILS ABSOLUTE AUTO 0.06 10^3/uL (0.10-0.30); EOSINOPHILS PERCENT AUTO 1.4 % (1.0-3.0); HEMATOCRIT 44.1 % (37.0-47.0); HEMOGLOBIN 13.3 g/dL (12.0-16.0); IMMATURE GRAN ABSOLUTE AUTO 0.02 10^3/uL (0.00-0.04); IMMATURE GRAN PERCENT AUTO 0.5 % (0.0-0.4); LYMPHOCYTES ABSOLUTE AUTO 1.01 10^3/uL (1.00-4.00); LYMPHOCYTES PERCENT AUTO 23.3 % (20.0-40.0); MEAN CORPUSCULAR HGB CONC 30.2 g/dL (32.0-36.0); MEAN CORPUSCULAR VOLUME 99.3 fL (82.0-92.0); MEAN PLATELET VOLUME 10.5 fL (7.4-10.4); MONOCYTES ABSOLUTE AUTO 0.24 10^3/uL (0.10-0.80); MONOCYTES PERCENT AUTO 5.5 % (2.0-8.0); NEUTROPHILS ABSOLUTE AUTO 2.98 10^3/uL (2.50-7.00); NEUTROPHILS PERCENT AUTO 68.8 % (50.0-70.0); PLATELET COUNT,PLT 158 10^3/uL (150-400); RED BLOOD CELL COUNT 4.44 10^6/uL (3.80-5.50); RED CELL DISTRIBUTION WIDTH 15.6 % (11.5-14.5); WHITE BLOOD CELL COUNT,WBC 4.33 10^3/uL (5.00-10.00)
[2025-01-13 15:14] LABS: ALBUMIN 2.97 g/dL (3.40-5.00); ANION GAP 13.7 mmol/L (5-15); BILIRUBIN TOTAL 0.4 mg/dL (0.2-1.0); CALCIUM 9.3 mg/dL (8.7-10.3); CREATININE 0.74 mg/dL (0.51-1.17); EST CRCL DRUG DOSING (CG) 44.28 mL/min; POTASSIUM,K 3.7 mmol/L (3.5-5.1); PROTEIN TOTAL,TP 7.1 g/dL (6.4-8.2)
[2025-01-13] MEDS: Ondansetron 4 MG/2 ML SDV IVPUSH ONE (16:12)
[2025-01-13] MEDS: LORazepam 2 MG/ML SDV IVPUSH ONE (16:15)
== END 2025-01-13 17:41 ==
LOC: KA.ED 14:36
DX: C15.9 Malignant neoplasm of esophagus, unspecified (principal); I10 Essential (primary) hypertension; E78.00 Pure hypercholesterolemia, unspecified; E66.9 Obesity, unspecified; Z68.33 Body mass index [BMI] 33.0-33.9, adult; Z90.710 Acquired absence of both cervix and uterus; Z88.2 Allergy status to sulfonamides; Z88.8 Allergy status to other drugs, medicaments and biological substances; Z79.899 Other long term (current) drug therapy
CPT/HCPCS: 36415; 80053; 85025; 96361; 96374; 96375; 99285; J2060; J2405; J7030

== ENCOUNTER 2025-01-27 16:42 | Emergency (ER) | payer MEDICARE, MEDICAID ==
[2025-01-27] MEDS ORDERED: Sodium Chloride 0.9% 10 ML Syringe FLUSH PRN (16:57)
[2025-01-27] MEDS: Sodium Chloride 0.9% 1,000 ML ONE (17:22)
[2025-01-27] MEDS: Sodium Chloride 0.9% 1,000 ML IV ONE (17:22)
[2025-01-27 18:01] LABS: BASOPHILS ABSOLUTE AUTO 0.04 10^3/uL (0.00-0.10); BASOPHILS PERCENT AUTO 0.6 % (0.0-1.0); EOSINOPHILS ABSOLUTE AUTO 0.17 10^3/uL (0.10-0.30); EOSINOPHILS PERCENT AUTO 2.5 % (1.0-3.0); HEMATOCRIT 42.3 % (37.0-47.0); IMMATURE GRAN ABSOLUTE AUTO 0.04 10^3/uL (0.00-0.04); IMMATURE GRAN PERCENT AUTO 0.6 % (0.0-0.4); LYMPHOCYTES ABSOLUTE AUTO 1.58 10^3/uL (1.00-4.00); LYMPHOCYTES PERCENT AUTO 23.7 % (20.0-40.0); MEAN CORPUSCULAR HEMOGLOBIN 29.7 pg (27.0-31.0); MEAN CORPUSCULAR HGB CONC 30.7 g/dL (32.0-36.0); MEAN CORPUSCULAR VOLUME 96.6 fL (82.0-92.0); MEAN PLATELET VOLUME 11.8 fL (7.4-10.4); MONOCYTES ABSOLUTE AUTO 0.47 10^3/uL (0.10-0.80); NEUTROPHILS ABSOLUTE AUTO 4.37 10^3/uL (2.50-7.00); NEUTROPHILS PERCENT AUTO 65.6 % (50.0-70.0); PLATELET COUNT,PLT 159 10^3/uL (150-400); RED BLOOD CELL COUNT 4.38 10^6/uL (3.80-5.50); RED CELL DISTRIBUTION WIDTH 15.6 % (11.5-14.5); WHITE BLOOD CELL COUNT,WBC 6.67 10^3/uL (5.00-10.00)
[2025-01-27 18:17] LABS: ALBUMIN 2.8 g/dL (3.40-5.00); ANION GAP 13.7 mmol/L (5-15); BILIRUBIN TOTAL 0.5 mg/dL (0.2-1.0); CALCIUM 9.1 mg/dL (8.7-10.3); CARBON DIOXIDE,CO2 27.5 mmol/L (21.0-32.0); CREATININE 0.57 mg/dL (0.51-1.17); EST CRCL DRUG DOSING (CG) 57.48 mL/min; POTASSIUM,K 4.2 mmol/L (3.5-5.1); PROTEIN TOTAL,TP 6.6 g/dL (6.4-8.2)
[2025-01-27 21:52] VITALS: BP 176/93; PULSE 94
== END 2025-01-27 20:01 ==
LOC: KA.ED 16:42
DX: J90 Pleural effusion, not elsewhere classified (principal); C15.9 Malignant neoplasm of esophagus, unspecified; R53.1 Weakness; I48.91 Unspecified atrial fibrillation; I11.0 Hypertensive heart disease with heart failure; I50.9 Heart failure, unspecified; E78.00 Pure hypercholesterolemia, unspecified; Z95.0 Presence of cardiac pacemaker; K21.9 Gastro-esophageal reflux disease without esophagitis; E66.9 Obesity, unspecified; Z79.01 Long term (current) use of anticoagulants; Z79.899 Other long term (current) drug therapy; Z88.2 Allergy status to sulfonamides; Z88.8 Allergy status to other drugs, medicaments and biological substances; Z88.6 Allergy status to analgesic agent; Z68.33 Body mass index [BMI] 33.0-33.9, adult
CPT/HCPCS: 36415; 71045; 71250; 80053; 85025; 96360; 96361; 99285-25; J7030

== ENCOUNTER 2025-03-07 10:20 | Emergency (ER) | payer MEDICARE, MEDICAID ==
[2025-03-07 10:43] LABS: BASOPHILS ABSOLUTE AUTO 0.05 10^3/uL (0.00-0.10); BASOPHILS PERCENT AUTO 0.4 % (0.0-1.0); EOSINOPHILS PERCENT AUTO 2.6 % (1.0-3.0); HEMATOCRIT 41.1 % (37.0-47.0); IMMATURE GRAN PERCENT AUTO 0.9 % (0.0-0.4); LYMPHOCYTES ABSOLUTE AUTO 3.18 10^3/uL (1.00-4.00); LYMPHOCYTES PERCENT AUTO 28.1 % (20.0-40.0); MEAN CORPUSCULAR HEMOGLOBIN 29.8 pg (27.0-31.0); MEAN CORPUSCULAR HGB CONC 31.6 g/dL (32.0-36.0); MEAN CORPUSCULAR VOLUME 94.3 fL (82.0-92.0); MEAN PLATELET VOLUME 12.2 fL (7.4-10.4); MONOCYTES ABSOLUTE AUTO 0.95 10^3/uL (0.10-0.80); MONOCYTES PERCENT AUTO 8.4 % (2.0-8.0); NEUTROPHILS ABSOLUTE AUTO 6.75 10^3/uL (2.50-7.00); NEUTROPHILS PERCENT AUTO 59.6 % (50.0-70.0); PLATELET COUNT,PLT 158 10^3/uL (150-400); RED BLOOD CELL COUNT 4.36 10^6/uL (3.80-5.50); RED CELL DISTRIBUTION WIDTH 14.6 % (11.5-14.5); WHITE BLOOD CELL COUNT,WBC 11.33 10^3/uL (5.00-10.00)
[2025-03-07] MEDS ORDERED: Sodium Chloride 0.9% 1,000 ML IV SCH (10:45)
[2025-03-07 10:49] LABS: BASE EXCESS ARTERIAL,POC -1 mmol/L ((-2)-3); HCO3 ARTERIAL,POC 26.4 mmol/L (21-28); O2 SATURATION ARTERIAL,POC 99.6 % (94-98); PCO2 ARTERIAL,POC 53 mmHg (35-48); PH ARTERIAL,POC 7.31 pH (7.35-7.45); PO2 ARTERIAL,POC 200 mmHg (83-108); TCO2 ARTERIAL,POC 26 mmol/L (22-29)
[2025-03-07] MEDS: Midazolam 1 MG/ML 2 ML SDV IVPUSH ONE (10:49)
[2025-03-07 11:00] LABS: ALBUMIN 2.76 g/dL (3.40-5.00); ANION GAP 10.6 mmol/L (5-15); BILIRUBIN TOTAL 0.4 mg/dL (0.2-1.0); CALCIUM 8.5 mg/dL (8.7-10.3); CARBON DIOXIDE,CO2 28.2 mmol/L (21.0-32.0); CREATININE 0.48 mg/dL (0.51-1.17); EST CRCL DRUG DOSING (CG) 68.26 mL/min; POTASSIUM,K 3.8 mmol/L (3.5-5.1)
[2025-03-07] MEDS: PROPOFOL IV SCH (11:11)
[2025-03-07 11:15] LABS: APPEARANCE,URINE SLIGHTLY CLOUDY (CLEAR); BILIRUBIN,URINE NEGATIVE (NEGATIVE); COLOR,URINE YELLOW (YELLOW); GLUCOSE,URINE NEGATIVE (NEGATIVE); KETONES,URINE NEGATIVE (NEGATIVE); LEUKOCYTE ESTERASE,URINE NEGATIVE (NEGATIVE); NITRITE,URINE NEGATIVE (NEGATIVE); OCCULT BLOOD,URINE TRACE-INTACT (NEGATIVE); PH,URINE 6.5 (5.0-9.0); PROTEIN,URINE >=300 mg/dL (NEGATIVE)
[2025-03-07 11:24] LABS: RBC,URINE 0-5 /HPF (0-5)
[2025-03-07 11:25] LABS: BACTERIA,URINE FEW /HPF (NONE TO FEW); EPITHELIAL CELLS,URINE MODERATE /LPF; HYALINE CASTS,URINE FEW
[2025-03-07] MEDS: Rocuronium 50 MG/5 ML Vial IVPUSH ONE ×2 (11:43→12:28)
[2025-03-07] MEDS: Sodium Chloride 0.9% 1,000 ML IV SCH (12:40)
[2025-03-07] MEDS: Iopamidol 755 Mg/ML 100 ML Bottle IV ONE (12:51)
[2025-03-07] MEDS: Furosemide 40 MG/4 ML VIAL IVPUSH ONE (12:51)
[2025-03-07] MEDS: Sodium Chloride 0.9% 50 ML IV SCH (12:51)
[2025-03-07] MEDS: Propofol 200 MG/20 ML SDV ONE (12:56)
[2025-03-07] MEDS: Sodium Chloride 0.9% 2,000 ML ONE (14:15)
== END 2025-03-07 13:32 ==
LOC: KA.ED 10:25
DX: R09.2 Respiratory arrest (principal); R79.89 Other specified abnormal findings of blood chemistry; C15.9 Malignant neoplasm of esophagus, unspecified; I48.91 Unspecified atrial fibrillation; I11.0 Hypertensive heart disease with heart failure; I50.9 Heart failure, unspecified; E78.00 Pure hypercholesterolemia, unspecified; E87.8 Other disorders of electrolyte and fluid balance, not elsewhere classified; Z88.5 Allergy status to narcotic agent; Z88.2 Allergy status to sulfonamides; Z88.8 Allergy status to other drugs, medicaments and biological substances; Z79.899 Other long term (current) drug therapy; Z79.01 Long term (current) use of anticoagulants; Z99.12 Encounter for respirator [ventilator] dependence during power failure
CPT/HCPCS: 36415; 36600; 51702; 70450; 71045; 71275; 80053; 81001; 82803; 83605; 83880; 84484; 85025; 85379; 93010; 96365; 96366; 96375; 96376; 99284; 99291-25; J1938; J2250; J2704; J3490; J7030; Q3014; Q9967